=== PATIENT | male | born 1935 | race Caucasian/White ===

== ENCOUNTER 2017-05-04 21:01 | Emergency (ER) | payer MEDICARE, OTHER ==
[2017-05-04 21:12] VITALS: BP 135/76
--- NOTE | 2017-05-04 21:13 | EDM.PDOC ---
ED HPI GENERAL MEDICAL PROBLEM - General Chief Complaint: Abdominal Pain Stated Complaint: constipation/stomach pain Time Seen by Provider: 05/04/17 21:12 Source of Information: Reports: Patient, Family, RN, RN Notes Reviewed History Limitations: Reports: No Limitations - History of Present Illness INITIAL COMMENTS - FREE TEXT/NARRATIVE: Patient presents to the ED at [facility] complaining of constipation. Patient states his last BM was 05/01/2017. Patient underwent a hernia repair with mesh also on 05/01/2017. Patient states since then surgery he has not been able to have a BM. Patient states he has been using Colace twice a day without any relief. Otherwise, no other concerns. Onset Date: 05/01/17 - Related Data Allergies Allergy/AdvReac Type Severity Reaction Status Date / Time No Known Allergies Allergy Verified 12/29/14 09:10 Home Meds: Home Meds Albuterol [Ventolin HFA] 2 puff INH Q4H PRN 12/20/14 [History] Albuterol/Ipratropium [DuoNeb 3.0-0.5 MG/3 ML] 1 dose INH Q6H 11/21/16 [History] Budesonide [Pulmicort] 0.5 mg NEB BIDRT 11/21/16 [History] Formoterol [Perforomist] 20 mcg NEB BIDRT 11/21/16 [History] Furosemide [Lasix] 20 mg PO DAILY 11/21/16 [History] Lisinopril 20 mg PO DAILY 11/21/16 [History] Omeprazole Magnesium [Prilosec Otc] 20 mg PO QAM 11/21/16 [History] amLODIPine [Norvasc] 10 mg PO DAILY 11/21/16 [History] traMADol [Ultram] 50 mg PO Q4H PRN 11/21/16 [History] Doxycycline Calcium [IMW: Doxycycline] 100 mg PO BID #10 capsule 11/23/16 [Rx] Furosemide [Lasix] 40 mg PO DAILY #60 tablet 11/23/16 [Rx] Past Medical History Cardiovascular History: Reports: Heart Failure, Hypertension, SOB on Exertion Respiratory History: Reports: Asthma, COPD, Sleep Apnea Gastrointestinal History: Reports: GERD Other Gastrointestinal History: henia Other Musculoskeletal History: paget disease. cervicalgia Other Endocrine/Metabolic History: hyperlipidemia Social & Family History - Family History Family Medical History: Noncontributory Endocrine/Metabolic: Reports: Diabetes, type II - Tobacco Use Smoking Status *Q: Former Smoker Month Tobacco Last Used: 60 years ago Second Hand Smoke Exposure: Yes - Caffeine Use Caffeine Use: Reports: Coffee - Alcohol Use Days Per Week of Alcohol Use: 1 Number of Drinks Per Day: 3 Total Drinks Per Week: 3 - Recreational Drug Use Recreational Drug Use: No Drug Use in Last 12 Months: No - Living Situation & Occupation Living situation: Reports: Alone Occupation: Retired ED ROS GENERAL - Review of Systems Review Of Systems: See Below Constitutional: Denies: Fever, Chills, Weakness Respiratory: Reports: Shortness of Breath (chronic due to COPD; wears oxygen OTC ) Cardiovascular: Reports: Chest Pain, Palpitations GI/Abdominal: Reports: Abdominal Pain, Constipation. Denies: Nausea, Vomiting Skin: Reports: No Symptoms Neurological: Reports: No Symptoms ED EXAM, GI/ABD - Physical Exam Exam: See Below Exam Limited By: No Limitations General Appearance: Alert, No Apparent Distress, Obese Respiratory/Chest: No Respiratory Distress, Lungs Clear, Decreased Breath Sounds Cardiovascular: Regular Rate, Rhythm GI/Abdominal: Hypoactive Bowel Sounds, Distention. No: Guarding, Rebound Neurological: Alert, Oriented Skin Exam: Warm, Dry, Intact, Normal Color, No Rash Course - Vital Signs Last Recorded V/S: Last Vital Signs Temp 37.4 C 05/04/17 21:10 Pulse 100 05/04/17 21:10 Resp 16 05/04/17 21:10 BP 135/76 05/04/17 21:10 Pulse Ox 89 L 05/04/17 21:10 - Orders/Labs/Meds Orders: Active Orders 24 hr Category Date Time Status Magnesium Citrate [Citrate of Magnesia] Med 05/04/17 21:25 Once 296 ml PO ONETIME ONE Medication Orders Magnesium Citrate (Citrate Of Magnesia) 296 ml PO ONETIME ONE Stop: 05/04/17 21:26 Meds: Medications Generic Name Dose Route Start Last Admin Trade Name Freq PRN Reason Stop Dose Admin Magnesium Citrate 296 ml 05/04/17 21:25 Citrate Of Magnesia PO 05/04/17 21:26 ONETIME ONE Departure - Departure Time of Disposition: 21:30 Disposition: Home, Self-Care 01 Condition: Good Clinical Impression: Constipation Qualifiers: Constipation type: unspecified constipation type Qualified Code(s): K59.00 - Constipation, unspecified - Discharge Information Instructions: Constipation, Adult, [id number] Referrals: Jen Armenta MD [Primary Care Provider] - Forms: ED Department Discharge Additional Instructions: 1. Stay well hydrated and rest 2. Continue to take Colace at home 3. Keep appointment with your Primary for this week 4. Call or return for any questions/concerns - Problem List Review Problem List Initiated/Reviewed/Updated: Yes - My Orders Last 24 Hours: My Active Orders 05/04/17 21:25 Magnesium Citrate [Citrate of Magnesia] 296 ml PO ONETIME ONE - Assessment/Plan Last 24 Hours: My Active Orders 05/04/17 21:25 Magnesium Citrate [Citrate of Magnesia] 296 ml PO ONETIME ONE
[2017-05-04] MEDS ORDERED: Magnesium Citrate Solution 296 ML Bottle PO ONE (21:25)
[2017-05-04] MEDS ORDERED: Magnesium Hydroxide 400 MG/5 ML Susp 30 ML Cup PO ONE (21:27)
[2017-05-04] MEDS ORDERED: Magnesium Citrate Solution 296 ML Bottle ONE (21:35)
== END 2017-05-04 21:46 | disposition home or self-care (01) ==
LOC: SUPCPDRO 21:01 → VM.ED 21:01
DX: K59.00 Constipation, unspecified (principal); J45.909 Unspecified asthma, uncomplicated; E78.5 Hyperlipidemia, unspecified; I11.0 Hypertensive heart disease with heart failure; I50.9 Heart failure, unspecified; J44.9 Chronic obstructive pulmonary disease, unspecified; K21.9 Gastro-esophageal reflux disease without esophagitis; Z87.891 Personal history of nicotine dependence; Z79.899 Other long term (current) drug therapy
CPT/HCPCS: 99283; A9270

== ENCOUNTER 2018-04-17 08:35 | Inpatient (IN) | payer MEDICARE, OTHER ==
[2018-04-17] MEDS ORDERED: methylPREDNISolone Sodium Succinate 125 MG/2 ML SDV IV ONE (08:40)
[2018-04-17] MEDS ORDERED: Albuterol/Ipratropium 3.0-0.5 MG/3 ML Neb Soln NEB ONE (08:40)
[2018-04-17] MEDS ORDERED: Furosemide 20 MG/2 ML VIAL IV ONE (08:55)
[2018-04-17] MEDS ORDERED: cefTRIAXone 2 GM Vial IVPUSH ONE (09:13)
--- NOTE | 2018-04-17 09:19 | EDM.PDOC ---
<Anastacio Wills W - Last Filed: 04/17/18 09:26> ED HPI GENERAL MEDICAL PROBLEM - General Chief Complaint: Respiratory Problem Stated Complaint: ER Time Seen by Provider: 04/17/18 08:38 Source of Information: Reports: Patient, Provider, RN History Limitations: Reports: Respiratory Distress - History of Present Illness INITIAL COMMENTS - FREE TEXT/NARRATIVE: Pt. presents ER with complaints of dyspnea and was on prednisone recently for DJD. He states that he began getting short of breath yesterday. He finished his tapering course of prednisone yesterday. He states that he has had a cough, but this is normal for him. He denies any fever or chills. No nausea, vomiting, or diarrhea. Pt. presented to the clinic with acute dyspnea and was immediately brought to ER , as they found him to have an O2 sat in the 30s. He has been hospitalized for COPD and diastolic heart failure in the past, with the last admission being in 2017. Pt. is on home o2 at 2L/min. When he presented to ER, his O2 tank was empty. Onset Date: 04/16/18 Location: Reports: Chest Associated Symptoms: Reports: Shortness of Breath. Denies: Diaphoresis, Fever/ Chills, Headaches, Nausea/Vomiting - Related Data Allergies Allergy/AdvReac Type Severity Reaction Status Date / Time No Known Allergies Allergy Verified 04/17/18 09:08 Home Meds: Home Meds Albuterol [Ventolin HFA] 2 puff INH Q4H PRN 12/20/14 [History] Albuterol/Ipratropium [DuoNeb 3.0-0.5 MG/3 ML] 3 ml NEB Q6H 11/21/16 [History] Budesonide [Pulmicort] 0.5 mg NEB BIDRT 11/21/16 [History] Formoterol [Perforomist] 20 mcg NEB BIDRT 11/21/16 [History] Lisinopril 20 mg PO DAILY 11/21/16 [History] amLODIPine [Norvasc] 10 mg PO DAILY 11/21/16 [History] Docusate Sodium [Colace] 100 mg PO BID 05/05/17 [History] Acetaminophen 650 mg PO Q6H PRN 04/17/18 [History] Furosemide 40 mg PO BID@0800,1200 04/17/18 [History] Roflumilast [Daliresp] 250 mcg PO DAILY 04/17/18 [History] Past Medical History Cardiovascular History: Reports: Heart Failure, Hypertension, SOB on Exertion Respiratory History: Reports: Asthma, COPD, Sleep Apnea Gastrointestinal History: Reports: GERD Other Gastrointestinal History: henia Other Musculoskeletal History: paget disease. cervicalgia Other Endocrine/Metabolic History: hyperlipidemia Social & Family History - Family History Family Medical History: Noncontributory Endocrine/Metabolic: Reports: Diabetes, type II - Caffeine Use Caffeine Use: Reports: Coffee - Living Situation & Occupation Living situation: Reports: Alone Occupation: Retired ED ROS GENERAL - Review of Systems Review Of Systems: See Below Constitutional: Reports: Malaise, Fatigue HEENT: Reports: No Symptoms Respiratory: Reports: Shortness of Breath, Wheezing, Cough Cardiovascular: Reports: No Symptoms. Denies: Chest Pain Endocrine: Reports: No Symptoms GI/Abdominal: Reports: No Symptoms : Reports: No Symptoms Musculoskeletal: Reports: No Symptoms Skin: Reports: Cyanosis, Change in Color Neurological: Reports: Confusion Psychiatric: Reports: No Symptoms Hematologic/Lymphatic: Reports: No Symptoms Immunologic: Reports: No Symptoms ED EXAM, GENERAL - Physical Exam Exam: See Below Exam Limited By: No Limitations General Appearance: Alert, WD/WN, No Apparent Distress Respiratory/Chest: Lungs Clear, No Accessory Muscle Use, Chest Non-Tender, Respiratory Distress, Decreased Breath Sounds, Crackles, Wheezing Cardiovascular: Normal Peripheral Pulses, Regular Rate, Rhythm, No JVD, No Rub, Other (increased peripheral edema) Peripheral Pulses: 4+: Femoral (L), Femoral (R) GI/Abdominal: Normal Bowel Sounds, Soft, Non-Tender, No Organomegaly, No Distention, No Abnormal Bruit, No Mass (Male) Exam: Deferred Rectal (Males) Exam: Deferred Back Exam: Normal Inspection, Full Range of Motion, NT Extremities: Normal Inspection, Normal Range of Motion, Non-Tender, Normal Capillary Refill, Pedal Edema Neurological: Alert, Oriented, CN II-XII Intact, Normal Cognition, Normal Gait, Normal Reflexes, No Motor/Sensory Deficits Psychiatric: Normal Affect, Normal Mood Skin Exam: Warm, Dry, Intact, Cyanosis, Mottled Lymphatic: No Adenopathy Course - Vital Signs Last Recorded V/S: Last Vital Signs Temp 36.8 C 04/17/18 08:35 Pulse 89 04/17/18 10:45 Resp 36 H 04/17/18 10:45 BP 136/53 L 04/17/18 10:45 Pulse Ox 88 L 04/17/18 10:45 - Orders/Labs/Meds Orders: Active Orders 24 hr Category Date Time Status Admission Status [Patient Status] [ADT] Routine ADT 04/17/18 10:48 Ordered BIPAP Adult [RT BiPAP/CPAP] [RC] ASDIRECTED Care 04/17/18 08:44 Active RT Aerosol Therapy [RC] ASDIRECTED Care 04/17/18 08:40 Active Chest 1V Frontal [CR] Stat Exams 04/17/18 08:38 Taken CULTURE BLOOD [BC] Stat Lab 04/17/18 08:52 Received CULTURE BLOOD [BC] Stat Lab 04/17/18 08:56 Received Sodium Chloride 0.9% [Saline Flush] Med 04/17/18 08:38 Active 10 ml FLUSH ASDIRECTED PRN Blood Culture x2 Reflex Set [OM.PC] Stat Oth 04/17/18 08:39 Ordered Peripheral IV Insertion Adult [OM.PC] Routine Oth 04/17/18 08:39 Ordered Medication Orders Sodium Chloride (Saline Flush) 10 ml FLUSH ASDIRECTED PRN PRN Reason: Keep Vein Open Labs: Laboratory Tests 04/17/18 04/17/18 04/17/18 Range/Units 08:52 08:52 08:52 WBC 7.8 (4.0-10.0) x10^3/uL RBC 4.39 L (4.5-6.0) x10^6/uL Hgb 14.0 (14.0-18.0) g/dL Hct 48.0 (40.0-52.0) % MCV 109.3 H D (78.0-93.0) fL MCH 31.9 (26.0-32.0) pg MCHC 29.2 L (32.0-36.0) g/dL RDW Coeff of Honey 15.6 H (10.0-15.0) % Plt Count 126 L (130-400) x10^3/uL Neut % (Auto) 70.4 (50.0-80.0) % Lymph % (Auto) 9.9 L (25.0-50.0) % [place] % (Auto) 18.4 H (2.0-11.0) % Eos % (Auto) 1.0 (0.0-4.0) % Baso % (Auto) 0.3 (0.2-1.2) % PT 10.8 (9.6-11.4) SEC INR 1.0 L (2.0-3.5) POC ABG pH (7.35-7.45) POC ABG pCO2 (35-45) mmHG POC ABG pO2 (80-105) mmHG POC ABG HCO3 (22-26) mmol/L POC ABG Total CO2 (23-27) mmol/L POC ABG O2 Sat (95-98) % POC ABG Base Excess (-2-3) mmol/L POC FiO2 Sodium 138 (136-145) mmol/L Potassium 4.2 (3.5-5.1) mmol/L Chloride 96 L (98-107) mmol/L Carbon Dioxide 43 H (21-32) mmol/L Anion Gap 3.2 L (10-20) mmol/L BUN 14 (7-18) mg/dL Creatinine 0.8 (0.70-1.30) mg/dL Est Cr Clr Drug Dosing 65.31 mL/min Estimated GFR (MDRD) > 60 Glucose 118 H (74-106) mg/dL Lactic Acid (0.4-2.0) mmol/L Calcium 8.8 (8.5-10.1) mg/dL Corrected Calcium 9.44 (8.5-10.1) mg/dL Phosphorus 3.2 (2.6-4.7) mg/dL Magnesium 1.9 (1.8-2.4) mg/dL Total Bilirubin 0.6 (0.2-1.0) mg/dL AST 16 (15-37) U/L ALT 22 (16-63) U/L Alkaline Phosphatase 155 H (46-116) U/L Troponin I < 0.017 (<=0.056) ng/mL C-Reactive Protein 5.6 H (<=0.9) mg/dL NT-Pro-B Natriuret Pep 117 (<=450) pg/mL Total Protein 6.5 (6.4-8.2) g/dL Albumin 3.2 L (3.4-5.0) g/dL Globulin 3.3 Albumin/Globulin Ratio 0.97 TSH, Ultra Sensitive 0.909 (0.358-3.74) uIU/mL POC Result Comm Urine Color (YELLOW) Urine Appearance (CLEAR) Urine pH (5.0-8.0) Ur Specific [place] Urine Protein (NEGATIVE) mg/dL Urine Glucose (UA) (NEGATIVE) mg/dL Urine Ketones (NEGATIVE) mg/dL Urine Occult Blood (NEGATIVE) Urine Nitrite (NEGATIVE) Urine Bilirubin (NEGATIVE) Urine Urobilinogen (0.2) EU/dL Ur Leukocyte Esterase (NEGATIVE) Urine RBC (NOT SEEN) /HPF Urine WBC (NOT SEEN) /HPF Ur Squamous Epith Cells (NEGATIVE) /HPF Calcium Oxalate Crystal (NEGATIVE) /HPF Urine Bacteria (NEGATIVE) /HPF Hyaline Casts (NEGATIVE) /HPF Granular Casts (NEGATIVE) /HPF Urine Mucus (NEGATIVE) /LPF 04/17/18 04/17/18 04/17/18 Range/Units 08:52 09:07 10:11 WBC (4.0-10.0) x10^3/uL RBC (4.5-6.0) x10^6/uL Hgb (14.0-18.0) g/dL Hct (40.0-52.0) % MCV (78.0-93.0) fL MCH (26.0-32.0) pg MCHC (32.0-36.0) g/dL RDW Coeff of Honey (10.0-15.0) % Plt Count (130-400) x10^3/uL Neut % (Auto) (50.0-80.0) % Lymph % (Auto) (25.0-50.0) % [place] % (Auto) (2.0-11.0) % Eos % (Auto) (0.0-4.0) % Baso % (Auto) (0.2-1.2) % PT (9.6-11.4) SEC INR (2.0-3.5) POC ABG pH 7.218 L* (7.35-7.45) POC ABG pCO2 113 H* (35-45) mmHG POC ABG pO2 93 (80-105) mmHG POC ABG HCO3 46 H (22-26) mmol/L POC ABG Total CO2 49 H (23-27) mmol/L POC ABG O2 Sat 94 L (95-98) % POC ABG Base Excess 18 H (-2-3) mmol/L POC FiO2 0.80 Sodium (136-145) mmol/L Potassium (3.5-5.1) mmol/L Chloride (98-107) mmol/L Carbon Dioxide (21-32) mmol/L Anion Gap (10-20) mmol/L BUN (7-18) mg/dL Creatinine (0.70-1.30) mg/dL Est Cr Clr Drug Dosing mL/min Estimated GFR (MDRD) Glucose (74-106) mg/dL Lactic Acid 0.9 (0.4-2.0) mmol/L Calcium (8.5-10.1) mg/dL Corrected Calcium (8.5-10.1) mg/dL Phosphorus (2.6-4.7) mg/dL Magnesium (1.8-2.4) mg/dL Total Bilirubin (0.2-1.0) mg/dL AST (15-37) U/L ALT (16-63) U/L Alkaline Phosphatase (46-116) U/L Troponin I (<=0.056) ng/mL C-Reactive Protein (<=0.9) mg/dL NT-Pro-B Natriuret Pep (<=450) pg/mL Total Protein (6.4-8.2) g/dL Albumin (3.4-5.0) g/dL Globulin Albumin/Globulin Ratio TSH, Ultra Sensitive (0.358-3.74) uIU/mL POC Result Comm Called critical res Urine Color Dark yellow H (YELLOW) Urine Appearance Slightly cloudy H (CLEAR) Urine pH 5.5 (5.0-8.0) Ur Specific [place] 1.020 Urine Protein Negative (NEGATIVE) mg/dL Urine Glucose (UA) Negative (NEGATIVE) mg/dL Urine Ketones Negative (NEGATIVE) mg/dL Urine Occult Blood Negative (NEGATIVE) Urine Nitrite Negative (NEGATIVE) Urine Bilirubin Negative (NEGATIVE) Urine Urobilinogen 0.2 (0.2) EU/dL Ur Leukocyte Esterase Negative (NEGATIVE) Urine RBC 0-5 (NOT SEEN) /HPF Urine WBC Not seen (NOT SEEN) /HPF Ur Squamous Epith Cells Not seen (NEGATIVE) /HPF Calcium Oxalate Crystal Rare H (NEGATIVE) /HPF Urine Bacteria Rare (NEGATIVE) /HPF Hyaline Casts Few H (NEGATIVE) /HPF Granular Casts Rare H (NEGATIVE) /HPF Urine Mucus Few H (NEGATIVE) /LPF 04/17/18 Range/Units 10:39 WBC (4.0-10.0) x10^3/uL RBC (4.5-6.0) x10^6/uL Hgb (14.0-18.0) g/dL Hct (40.0-52.0) % MCV (78.0-93.0) fL MCH (26.0-32.0) pg MCHC (32.0-36.0) g/dL RDW Coeff of Honey (10.0-15.0) % Plt Count (130-400) x10^3/uL Neut % (Auto) (50.0-80.0) % Lymph % (Auto) (25.0-50.0) % [place] % (Auto) (2.0-11.0) % Eos % (Auto) (0.0-4.0) % Baso % (Auto) (0.2-1.2) % PT (9.6-11.4) SEC INR (2.0-3.5) POC ABG pH 7.247 L* (7.35-7.45) POC ABG pCO2 105 H* (35-45) mmHG POC ABG pO2 60 L (80-105) mmHG POC ABG HCO3 46 H (22-26) mmol/L POC ABG Total CO2 49 H (23-27) mmol/L POC ABG O2 Sat 83 L (95-98) % POC ABG Base Excess 18 H (-2-3) mmol/L POC FiO2 0.50 Sodium (136-145) mmol/L Potassium (3.5-5.1) mmol/L Chloride (98-107) mmol/L Carbon Dioxide (21-32) mmol/L Anion Gap (10-20) mmol/L BUN (7-18) mg/dL Creatinine (0.70-1.30) mg/dL Est Cr Clr Drug Dosing mL/min Estimated GFR (MDRD) Glucose (74-106) mg/dL Lactic Acid (0.4-2.0) mmol/L Calcium (8.5-10.1) mg/dL Corrected Calcium (8.5-10.1) mg/dL Phosphorus (2.6-4.7) mg/dL Magnesium (1.8-2.4) mg/dL Total Bilirubin (0.2-1.0) mg/dL AST (15-37) U/L ALT (16-63) U/L Alkaline Phosphatase (46-116) U/L Troponin I (<=0.056) ng/mL C-Reactive Protein (<=0.9) mg/dL NT-Pro-B Natriuret Pep (<=450) pg/mL Total Protein (6.4-8.2) g/dL Albumin (3.4-5.0) g/dL Globulin Albumin/Globulin Ratio TSH, Ultra Sensitive (0.358-3.74) uIU/mL POC Result Comm Called critical res Urine Color (YELLOW) Urine Appearance (CLEAR) Urine pH (5.0-8.0) Ur Specific [place] Urine Protein (NEGATIVE) mg/dL Urine Glucose (UA) (NEGATIVE) mg/dL Urine Ketones (NEGATIVE) mg/dL Urine Occult Blood (NEGATIVE) Urine Nitrite (NEGATIVE) Urine Bilirubin (NEGATIVE) Urine Urobilinogen (0.2) EU/dL Ur Leukocyte Esterase (NEGATIVE) Urine RBC (NOT SEEN) /HPF Urine WBC (NOT SEEN) /HPF Ur Squamous Epith Cells (NEGATIVE) /HPF Calcium Oxalate Crystal (NEGATIVE) /HPF Urine Bacteria (NEGATIVE) /HPF Hyaline Casts (NEGATIVE) /HPF Granular Casts (NEGATIVE) /HPF Urine Mucus (NEGATIVE) /LPF Meds: Medications Generic Name Dose Route Start Last Admin Trade Name Freq PRN Reason Stop Dose Admin Sodium Chloride 10 ml 04/17/18 08:38 Saline Flush FLUSH ASDIRECTED PRN Keep Vein Open Discontinued Medications Generic Name Dose Route Start Last Admin Trade Name Freq PRN Reason Stop Dose Admin Albuterol/Ipratropium 3 ml 04/17/18 08:40 04/17/18 08:58 Duoneb 3.0-0.5 Mg/3 Ml NEB 04/17/18 08:41 3 ml ONETIME ONE Administration Ceftriaxone Sodium 2 gm 04/17/18 09:13 Rocephin IVPUSH 04/17/18 09:14 STAT ONE Furosemide 20 mg 04/17/18 08:55 04/17/18 09:00 Lasix IV 04/17/18 08:56 20 mg ONETIME ONE Administration Methylprednisolone Sodium Succinate 125 mg 04/17/18 08:40 04/17/18 08:55 Solu-Medrol IV 04/17/18 08:41 125 mg ONETIME ONE Administration Departure - Departure Disposition: Admitted As Inpatient 64 Clinical Impression: COPD (chronic obstructive pulmonary disease) Qualifiers: COPD type: chronic bronchitis Chronic bronchitis type: unspecified Qualified Code(s): J42 - Unspecified chronic bronchitis Respiratory failure with hypoxia Qualifiers: Chronicity: acute on chronic Qualified Code(s): J96.21 - Acute and chronic respiratory failure with hypoxia - Discharge Information Referrals: Jen Armenta MD [Primary Care Provider] - Forms: ED Department Discharge - My Orders Last 24 Hours: My Active Orders 04/17/18 10:48 Admission Status [Patient Status] [ADT] Routine - Assessment/Plan Last 24 Hours: My Active Orders 04/17/18 10:48 Admission Status [Patient Status] [ADT] Routine <Lea Reyes - Last Filed: 04/17/18 11:41> ED ROS GENERAL - Review of Systems Constitutional: Reports: Malaise, Fatigue HEENT: Reports: No Symptoms Respiratory: Reports: Shortness of Breath, Wheezing. Denies: Pleuritic Chest Pain Cardiovascular: Reports: Dyspnea on Exertion, Edema. Denies: Chest Pain, Blood Pressure Problem, Orthopnea Endocrine: Reports: Fatigue GI/Abdominal: Reports: No Symptoms : Reports: No Symptoms Musculoskeletal: Reports: Joint Pain (chronic condition. recently on Steroids for pain/discomfort ) Skin: Reports: Cyanosis, Change in Color Neurological: Reports: Confusion, Other (Bipap on for 1 hour assessment: A&Ox3 ) Psychiatric: Reports: No Symptoms Hematologic/Lymphatic: Reports: No Symptoms Immunologic: Reports: No Symptoms ED EXAM, GENERAL - Physical Exam Exam Limited By: No Limitations General Appearance: Alert, WD/WN, No Apparent Distress Head: Atraumatic, Normocephalic Neck: Normal Inspection, Supple Respiratory/Chest: Chest Non-Tender, Respiratory Distress, Decreased Breath Sounds, Crackles, Rhonchi, Wheezing, Accessory Muscle Use Cardiovascular: Normal Peripheral Pulses, Gallop/S3 Peripheral Pulses: 1+: Posterior Tibial (L), Posterior Tibial (R), 2+: Radial (L ), Radial (R) GI/Abdominal: Normal Bowel Sounds, Soft, Non-Tender, No Distention, No Abnormal Bruit Back Exam: Normal Inspection, Full Range of Motion Extremities: Normal Inspection, Normal Range of Motion, Non-Tender, Pedal Edema , Pallor Neurological: Alert, Oriented, CN II-XII Intact, Normal Cognition, Normal Gait, Slow to Respond Psychiatric: Normal Affect, Normal Mood Skin Exam: Warm, Dry, Intact, Cyanosis, Mottled Departure - Departure Time of Disposition: 11:45 Condition: Fair - My Orders Last 24 Hours: My Active Orders 04/17/18 10:48 Admission Status [Patient Status] [ADT] Routine - Assessment/Plan Last 24 Hours: My Active Orders 04/17/18 10:48 Admission Status [Patient Status] [ADT] Routine Assessment:: 1. Respiratory failure 2. Shortness of Breath Plan: 1. Pt was in the clinic for shortness of breath and low oxygenation. Patient was confused and unable to complete sentences due to shortness of breath when admitted into the emergency department (According to Anastacio MARQUEZ). Patient does not want to be intubated or chest compression but will attempt other means for reversing shortness of breath. Patient was placed on BiPAP labs are drawn EKG completed x-ray completed (Completed by Anastacio MARQUEZ). 2. Patient was given Solu-Medrol, Lasix, Rocephin and Emergency Department 3. One hour ABGs were drawn after patient was placed on BiPAP. Clinical assessment patient is more alert and oriented able to answer shines appropriately. He is still tired responds appropriately. Assessment findings remain the same patient still has rales and crackles diminished sounds at the bases and edema in his lower extremity's. Patient however is not using accessory muscles any longer to help with breathing is more calm and relaxed. Patient states that he feels better he denies feeling short of breath any longer feels the BiPAP is working. 4. Plan for the patient will be to admit him for further monitoring and management regarding his shortness of breath/COPD exacerbation. Contact was made with Dr. Armenta who is aware from the office. 5. Dr. Castano was contacted at 10:23 for an acute inpatient admission. She is currently in clinic and will call back. 6. 10:40 Dr. Castano to accept admit for acute care. Would like pt to remain in ER if possible for a while longer to ensure he remains stable. 7. ABG redraw post 1 hour BIPAP still showing acute respiratory acidosis. Pt will remain on BIPAP and will be transferred to acute inpatient care.
[2018-04-17 09:52] LABS: CHLORIDE,CL 96 mmol/L (98-107); SODIUM,NA 138 mmol/L (136-145)
[2018-04-17] MEDS ORDERED: Azithromycin 500 MG in Sodium Chloride 0.9% 250 ML IV SCH (13:15)
[2018-04-17] MEDS: Sodium Chloride 0.9% 10 ML Syringe FLUSH PRN ×2 (13:25→16:05)
[2018-04-17] MEDS: Enoxaparin 40 MG/0.4 ML Syringe SUBCUT SCH (13:25)
[2018-04-17] MEDS: Albuterol/Ipratropium 3.0-0.5 MG/3 ML Neb Soln NEB PRN ×2 (13:53→17:52)
[2018-04-17] MEDS: Albuterol/Ipratropium 3.0-0.5 MG/3 ML Neb Soln NEB SCH ×3 (14:40→23:06)
[2018-04-17] MEDS: methylPREDNISolone Sodium Succinate 40 MG/1 ML SDV IVPUSH SCH ×2 (16:05→23:07)
[2018-04-17] MEDS ORDERED: Non-Formulary Medication 1 Each (Formoterol [Perforomist] 20 MCG) NEB SCH (20:00)
[2018-04-17] MEDS: Acetaminophen 325 MG Tab PO PRN ×2 (23:12→23:33)
--- NOTE | 2018-04-17 23:16 | HP ---
CHIEF COMPLAINT: Shortness of breath. HISTORY OF PRESENT ILLNESS: This is a known COPD patient with asthma who has been admitted previously for exacerbation, who presented to the clinic today with one day of worsening cough and shortness of breath. He was barely awake in the clinic. Saturations were reported to be down as low as 30%. He was taken over to the emergency room. His saturations there were 68%. He was immediately placed on BiPAP. He received nebs and Solu-Medrol. His mentation did improve. His CO2 actually returned quite elevated at 113. He denied any chest pain. He denied any fever or chills. He had just been on prednisone earlier this month for lumbar radiculopathy. He tells me that he has been compliant with his nebulizers. He takes Perforomist and Pulmicort. He has also been prescribed Daliresp. When he was admitted for COPD exacerbation back in 10/2016, I actually took care of him at that time and back in November he had a CT scan which was negative for pulmonary embolism, but it does not look like he was admitted at that time. Otherwise, he was reported to be wheezing by ER staff that has improved. ALLERGIES: None. MEDICATIONS: His medication list includes Daliresp 250 daily, Lasix 40 mg daily, Perforomist 20 mcg nebulized twice a day, Pulmicort 0.5 mg nebulized twice a day, DuoNebs every six hours as scheduled, lisinopril 20 mg daily, Norvasc 10 mg daily, Ventolin inhaler as needed, Tylenol 650 every six hours as needed for pain, Colace 100 mg twice daily, oxygen he is supposed to be at 2 L with rest and 6 L with activity per his chart, it sounds like he has used about 2 L at home. PAST MEDICAL HISTORY: COPD with asthma. He had pulmonary function testing in 2017 which showed him to have an FEV1 of 0.82 or 36% of predicted, severe obstructive disease without bronchodilator response reported at that time. Otherwise, he has essential hypertension, mixed hyperlipidemia, GERD without esophagitis, Paget's disease of the bone, chronic left SI joint pain, degenerative disk disease of the lumbar spine, scoliosis of the lumbar spine, obesity, epigastric hernia, and chronic diastolic heart failure which appears to be stable without exacerbation. He did get some Lasix in the ER, but his proBNP returned normal at actually 117. Otherwise, his EF has been 75% on echo in 11/2016. SOCIAL HISTORY: The patient today was actually brought in by his brother. He is single, lives at home independently. Never . No children. FAMILY HISTORY: Both parents are . Father had diabetes and a heart attack. Mother had cancer. Brother has some kind of muscle condition reported. PAST SURGICAL HISTORY: Includes ventral hernia repair and another repair of incisional hernia, repair of hernia with mesh in 04/2017 appears to be his last surgery. REVIEW OF SYSTEMS: General: The patient denies any recent weight gain. Again, no fever and no chills. HEENT: No sore throat. Cardiac: No chest discomfort. No palpitations. Actually, it should be reported it looks like his weight is up about 12 pounds on a clinic weight from just a couple weeks ago. Musculoskeletal: He did admit to some leg swelling. Respiratory: He has had a cough. He has had shortness of breath. Back: He denied any current back pain. Otherwise, all systems reviewed and found to be negative unless otherwise stated. PHYSICAL EXAMINATION: Vital Signs: His weight actually at the hospital was charted to be 118 on the standing scale and in the clinic weight was actually 122 kg, so possibly in the patient's acute distress that weight was not as accurate. His temperature is 98.1, pulse 88, blood pressure 101/75, respiratory rate 20, O2 at 90% on 60% FiO2 with BiPAP settings 15/5. General: He is resting comfortably in bed. Later, we did take off his BiPAP. He was sitting on the edge of the bed, visiting with us. He was able to talk in short sentences but did appear winded. He was doing some mild tripoding. Heart: Regular rate and rhythm. S1, S2 without murmur appreciated, but tones are distant. Respiratory: Lungs sounds show very decreased air entry in the bases, but good air movement in the upper lungs without crackles or wheezing. Abdomen: Nondistended and nontender. Extremities: Warm and dry. He does have 1+ edema up his lower shins. Mental Status: He is alert. He is orientated x3. LAB WORK: Reviewed, does have a normal white count 7.8, hemoglobin 14, platelets 126. INR was 1. D-dimer was not done. Repeat ABG showed 7.247 and 105 bicarb, and this was on 60% FiO2. After about an hour, PO2 was 60; actually first PO2 was slightly improved on that at 93. Sodium 138, potassium 4.2, chloride 96, bicarb 43, BUN 14, creatinine 0.8, glucose 118, lactic 0.9, magnesium 1.9, phosphorus 3.2, AST 16, ALT 22, alkaline phosphatase 155. Troponin negative. CRP 5.6. ProBNP 117, TSH 0.909. UA negative for wbc's or rbc's. DIAGNOSTIC STUDIES: EKG was reviewed as well, was a sinus rhythm. Chest x-ray was also reviewed. There was some atelectasis noted but no significant infiltrate. The patient did receive some IV Rocephin in the ER. He had also received some Lasix. One of our comment on the chest x-rays is extremely poor inhalation noted. IMPRESSION AND PLAN: 1. Acute on chronic hypoxic and hypercapnic respiratory failure, likely due to chronic obstructive pulmonary exacerbation. The patient has already had some improvements with treatments targeted at chronic obstructive pulmonary exacerbation. We will continue him on IV steroids 40 mg three times a day. We will continue q.4 hours scheduled DuoNebs and DuoNebs p.r.n. We will continue the BiPAP; however, later the patient was refusing. He was able to be weaned off. He was saturating upper 80% on about 12 L. he was allowed to eat something. The patient has elected to be a no code, no intubation; therefore, that is why he was not transferred. He will be managed here conservatively. Seeing as how the patient is refusing intubation, I will not continue repeating ABGs by will do a venous gas to evaluate the CO2. We will continue to encourage BiPAP. 2. Chronic obstructive pulmonary disease exacerbation with known severe underlying chronic obstructive pulmonary exacerbation. I am going to give him some oral Zithromax and continue Rocephin due to the severe exacerbation I will also send a sputum culture due to his purulent sputum. 3. Essential hypertension. Blood pressures are running lower. I am going to hold his home medications. 4. History of gastroesophageal reflux disease. I do not see any medications for that currently, we will address as needed. 5. Degenerative disk disease in the back. He is not having any pain right now. We will control pain with Tylenol as needed. 6. Chronic diastolic heart failure, stable without exacerbation. We will continue to monitor for any signs of heart failure. I will hold off on any further fluids or IV Lasix. 7. Obesity. PLAN: At this point patient will continue acute cares with BiPAP, IV steroids, nebulizers, and ABX. We will repeat lab work in the a.m. I anticipate he will at least need a 2-night stay. Greater than 30 minutes spent on this admission process, evaluating and treating the patient with respiratory failure. MKA: 04/17/2018 17:03:41 MODL: 04/17/2018 22:26:06 /[id number] MTDD
[2018-04-18] MEDS ORDERED: QUEtiapine 25 MG Tab PO ONE (02:28)
[2018-04-18] MEDS: Albuterol/Ipratropium 3.0-0.5 MG/3 ML Neb Soln NEB SCH ×6 (03:07→23:43)
[2018-04-18] MEDS: methylPREDNISolone Sodium Succinate 40 MG/1 ML SDV IVPUSH SCH ×2 (07:35→18:46)
[2018-04-18] MEDS: Sodium Chloride 0.9% 10 ML Syringe FLUSH PRN ×3 (07:35→18:46)
[2018-04-18] MEDS ORDERED: ROFLUMILAST 250 MCG PO SCH (08:00)
[2018-04-18 08:08] LABS: CHLORIDE,CL 94 mmol/L (98-107); SODIUM,NA 136 mmol/L (136-145)
[2018-04-18] MEDS ORDERED: QUEtiapine 25 MG Tab PO PRN (08:44)
--- NOTE | 2018-04-18 10:34 | PN ---
Progress Note for BRITNI VALENTINO Date: 04/18/2018 Room #: [id number] SUBJECTIVE: This is hospital day #2 for an 83-year-old admitted with acute hypoxic and hypercapnic respiratory failure secondary to a COPD exacerbation. He began coughing up some purulent sputum. He has been afebrile. He denies any chest pain. He feels his cough and shortness of breath are improving. He was on BiPAP all night. He is up and alert this morning, saturating in the 90s on 11 L. He normally does use 3 L at home and 6 L with activity. His last admission was well over a year ago. Otherwise, the patient did refuse his BiPAP for the latter part of yesterday afternoon. He had significant CO2 retention. He became unresponsive and was doing some twitching, so he was placed back on BiPAP. During the night, he was having some difficulty sleeping due to the Solu- Medrol, so did receive some Seroquel. OBJECTIVE: Vital Signs: On exam, his temperature is 98.3, pulse is 75, blood pressure 106/53, respiratory rate 26, and O2 of 96 on 11 L. General: He is in no acute distress. Heart: Regular rate and rhythm. Lungs: Sounds show good air entry throughout. No crackles or wheezes. Abdomen: Nondistended, nontender. Extremities: Warm and dry. No edema. Mental Status: He is alert. He is orientated x3. LAB WORK: This morning did show him to have a normal white count 6.2, hemoglobin 13.1, and platelets 126. Sodium 136, potassium 5, chloride 94, bicarb 41, BUN 19, creatinine 0.9, glucose 143, and calcium 8.5. Venous blood gas was done this morning. His pH was 7.46, pCO2 had decreased down to 63 from 105 on his ABG yesterday. Does suggest some metabolic alkalosis with superimposed respiratory acidosis, but even yesterday with his ABGs did show some chronic compensated respiratory acidosis as his pH was 7.2. ASSESSMENT AND PLAN: 1. Acute on chronic hypoxic and hypercapnic respiratory failure secondary to a severe chronic obstructive pulmonary disease exacerbation. 2. Severe underlying chronic obstructive pulmonary disease with exacerbation. 3. Essential hypertension. Blood pressures have been running low. Home medications are on hold. 4. History of gastroesophageal reflux disease, stable without problems. 5. Degenerative disk disease in the back. He is not having any pain. 6. Chronic diastolic heart failure stable without exacerbation. 7. Obesity. PLAN: At this point, the patient is off BiPAP. He is eating and drinking. We will leave the BiPAP in his room, in case he has a further need for it. He is actually thinking he might be able to go home later today or tomorrow. I anticipate he needs at least another night stay to ensure he stays off BiPAP. We will change his IV steroids to twice daily to avoid him getting it during the night. We will continue scheduled and p.r.n. nebs. I will stop the IV Zithromax and continue the IV Rocephin. Sputum cultures have been ordered. He has no history that I am aware of Pseudomonas and he is already improving, so we will hold off on any quinolones. Otherwise, the patient will continue acute cares. He still requiring 11 L of oxygen. We will wean that down today as able. MKA: 04/18/2018 10:08:40 MODL: 04/18/2018 10:28:37 /[id number]
[2018-04-18] MEDS: cefTRIAXone 1 GM Vial IVPUSH SCH (10:37)
[2018-04-18] MEDS: Enoxaparin 40 MG/0.4 ML Syringe SUBCUT SCH (13:38)
[2018-04-18] MEDS ORDERED: Non-Formulary Medication 1 Each INH SCH (16:00)
[2018-04-18] MEDS: PERFOROMIST 20 MCG INH SCH ×2 (16:53→19:54)
[2018-04-18] MEDS: Acetaminophen 325 MG Tab PO PRN (23:43)
[2018-04-19] MEDS: Albuterol/Ipratropium 3.0-0.5 MG/3 ML Neb Soln NEB SCH ×5 (03:09→22:16)
[2018-04-19] MEDS: methylPREDNISolone Sodium Succinate 40 MG/1 ML SDV IVPUSH SCH ×2 (06:14→09:14)
[2018-04-19 08:21] LABS: CHLORIDE,CL 91 mmol/L (98-107); SODIUM,NA 131 mmol/L (136-145)
[2018-04-19] MEDS: PERFOROMIST 20 MCG INH SCH ×2 (08:31→19:28)
--- NOTE | 2018-04-19 09:08 | PN ---
Progress Note for BRITNI VALENTINO Date: 04/19/2018 Room #: [id number] SUBJECTIVE: This is hospital day #3 on an 83-year-old, admitted with acute hypoxic and hypercapnic respiratory failure secondary to a COPD exacerbation. Yesterday, he was weaned from BiPAP. He did just use it for a nap. He slept without it last night. Sats did drop into the 70s while sleeping. His heart rates did drop into the 50s. He has been off his home medications for blood pressure including Lasix, Norvasc, and lisinopril. Blood pressures have been in the low-teens. Otherwise, he feels his cough and breathing have improved. He actually would like to go home, but is still requiring 8 L of oxygen. He has been afebrile. His IV inadvertently came out this morning. OBJECTIVE: Vital Signs: His temperature is 98, pulse 82, blood pressure 109/59, respiratory rate 18, and O2 96 on 8 L. General: He is in no acute distress. Heart: Regular rate and rhythm. Lungs: Sounds are clear in the uppers with no wheezing. The lowers have just faint crackles with decreased breath sounds bilaterally. Extremities: Warm and dry. He still has trace edema. Mental Status: He is alert and orientated x3. Genitourinary: Gan came out yesterday. He has been voiding okay. LABORATORY DATA: Lab work reviewed does show his white count 9.4, hemoglobin 14, and platelets 139. Sodium 131, potassium 4.9, chloride 91, bicarbonate 31, BUN 22, glucose 129, and calcium 8.4. ASSESSMENT AND PLAN: 1. [id number] hypoxic and hypercapnic respiratory failure due to chronic obstructive pulmonary disease exacerbation, improving. Informed the patient that he will need to be on 6 L of oxygen or less to return home. He is agreeable to stay. We will change IV Rocephin over to oral Ceftin and IV Solu-Medrol over to prednisone as his IV came out. Given his critical severe illness, it would be good to see how he does on orals for 1 day prior to transferring home. 2. Severe underlying chronic obstructive pulmonary disease. He is on his home Perforomist. Family was unable to locate his [facility] at home. He still has scheduled and p.r.n. nebs. He is on every 4 hours scheduled. We will back that off to 4 times a day. He still has p.r.n. available if needed. 3. Essential hypertension. Blood pressure still under good control. We will continue holding his home medications. 4. History of gastroesophageal reflux disease. Stable without problems. 5. Degenerative disk disease in the back. 6. Chronic diastolic heart failure. Stable without exacerbation. I will check a proBNP today as he has been off Lasix several days. 7. Obesity. PLAN: At this point, the patient will continue acute cares. We will continue to wean oxygen. We will switch his IV steroids and antibiotics over to oral. We will get a chest x-ray today as well. Blood cultures have been negative. I have not seen any results on the sputum culture, but clinically he is improving with the Ceftin. DVT prophylaxis, he is on Lovenox. MKA: 04/19/2018 08:42:54 MODL: 04/19/2018 08:57:37 /[id number]
[2018-04-19] MEDS: cefTRIAXone 1 GM Vial IVPUSH SCH (09:14)
[2018-04-19] MEDS: predniSONE 20 MG Tab PO SCH (09:40)
[2018-04-19] MEDS: Cefuroxime 250 MG Tab PO SCH ×2 (09:40→19:28)
[2018-04-19] MEDS: Enoxaparin 40 MG/0.4 ML Syringe SUBCUT SCH (11:59)
[2018-04-19] MEDS: Furosemide 40 MG Tab PO SCH (13:20)
[2018-04-19] MEDS: Acetaminophen 325 MG Tab PO PRN (19:27)
[2018-04-20] MEDS: Albuterol/Ipratropium 3.0-0.5 MG/3 ML Neb Soln NEB SCH (03:35)
[2018-04-20 05:20] VITALS: BP 122/66
[2018-04-20] MEDS: Furosemide 40 MG Tab PO SCH (07:48)
[2018-04-20] MEDS: predniSONE 20 MG Tab PO SCH (07:48)
[2018-04-20] MEDS: Cefuroxime 250 MG Tab PO SCH (07:48)
[2018-04-20] MEDS: PERFOROMIST 20 MCG INH SCH (07:51)
[2018-04-20 07:58] LABS: CHLORIDE,CL 96 mmol/L (98-107); SODIUM,NA 136 mmol/L (136-145)
[2018-04-20] MEDS ORDERED: guaiFENesin 600 MG Tab.ER PO SCH (08:30)
--- NOTE | 2018-04-20 09:24 | DISCH ---
PRIMARY DISCHARGE DIAGNOSES: 1. Acute on chronic hypoxic and hypercapnic respiratory failure secondary to his chronic obstructive pulmonary disease exacerbation. 2. Severe underlying chronic obstructive pulmonary disease with exacerbation. 3. Essential hypertension, controlled. 4. Chronic diastolic heart failure, stable with fluid retention due to holding Lasix, however, patient on discharge is improving. He has no pedal edema. His respiratory status has improved. He is urinating adequately. 5. History of gastroesophageal reflux disease. 6. Degenerative disc disease in the back, recently on prednisone for that. 7. Obesity. REASON FOR ADMISSION: On the date of admission, this 83-year-old male came into the clinic with a 1-day history of cough and shortness of breath. He became unresponsive with low oxygen saturations, barely could pick them up, maybe in the 30s, was taken over to the ER. Saturations were in the 60s. He was placed on BiPAP. His CO2 was 111. He improved with BiPAP. His CO2 was coming down, but then he started to refuse BiPAP. Later that day, he was doing some twitching, was unarousable. He was placed back on BiPAP. By the next morning after wearing the BiPAP, he was sitting up in his room. He was answering questions. He had refused to be admitted or transferred for further care. Overall, he did well. He was weaned off the BiPAP. He used it on his 2nd hospital day just for naps in the afternoon, but had been off it for greater than 24 hours prior to discharge. The patient never had a fever. He had a normal white count. He had x-ray showing some atelectasis, but no jaelyn infiltrates, little bit of fluid on his x-ray I repeated yesterday when Lasix was restarted and he had good urine output of 3.5 L. Blood pressure had been running low during his stay, so actually his amlodipine and his lisinopril and Lasix was on hold. Otherwise on discharge, the patient was weaned down to 5 L. He was saturating 91-92%. He does not have any underlying sleep apnea, but is normally on oxygen at home 2-3 L with rest and up to 6 L with activity. PHYSICAL EXAMINATION: Vital Signs: Discharging vitals include a weight of 124 kg actual previous weight was documented to be 118 on 04/17, however, that was reported as a stated weight, so it is unclear if that was accurate, temperature 98, pulse 82, blood pressure 122/66, respiratory rate 19, and O2 of 91% on 5 L. General: He is in no acute distress. Heart: Regular rate and rhythm. Lungs: Lung sounds do show some decreased air entry throughout. He just had some faint crackles in both bases. No wheezing. Abdomen: Nondistended, nontender. Extremities: Warm and dry, just trace edema. Mental Status: He is alert and orientated x3. DISCHARGING LAB WORK: His sodium was 136. His creatinine was 0.8, other electrolytes were within range. Hemoglobin was 14 yesterday, white count was normal. He did remain on Lovenox for DVT prophylaxis throughout his stay. He did not have a D-dimer. Clinically, this was felt to be a COPD exacerbation and he had a negative CT PE protocol back in November. He clinically improved each day. He went from requiring 60% oxygen on BiPAP to 5 L of oxygen, which is near his baseline. DISCHARGE PLANS AND INSTRUCTIONS: He will follow up with Dr. Armenta in the clinic on April 28 at 9:40. He will be on Ceftin for 1 more day. He was treated with some IV Rocephin initially and Zithromax. His sputum cultures were requested during his stay, but were not able to be obtained. Blood cultures were no growth. He will resume his Pulmicort. He had been getting Perforomist. He will resume DuoNeb at home. He had been receiving nebs here. He will be on prednisone 20 mg daily for another 5 days. He will take Mucinex. He will hold his amlodipine, but continue lisinopril and Lasix 40 mg twice daily. He should not need any lab work at his followup visit as he was placed on the same dose of the Lasix he previously took. Otherwise, the patient did feel like he could benefit from home health. [id number] encounter occurred on 04/20/2018. The reasons for home health are nursing for teaching and assessment of new medications and recent admission for severe respiratory failure. He will have home monitoring for his oxygen. He will complete his antibiotics. Due to increased dyspnea with activity, he requires assist of another person to leave his home. He is aware that he will be homebound well on home health. Otherwise, I will periodically review this plan of care or it can be sent to Dr. Armenta. Greater than 30 minutes spent. MKA: 04/20/2018 08:31:16 MODL: 04/20/2018 08:57:34 /[id number] MTDD
== END 2018-04-20 08:55 | disposition home health service (06) | DRG 190 ==
LOC: VM.ED 08:35 → VM.MS 10:48
PROVIDERS: ADMIT Internal Medicine; ATTEND Family Medicine
PROC: 5A09357 Assistance with Respiratory Ventilation, Less than 24 Consecutive Hours, Continuous Positive Airway Pressure (ICD-10-PCS; principal; 2018-04-17)
DX: J44.1 Chronic obstructive pulmonary disease with (acute) exacerbation (principal); J96.22 Acute and chronic respiratory failure with hypercapnia; E87.2 Acidosis; J96.21 Acute and chronic respiratory failure with hypoxia; I50.32 Chronic diastolic (congestive) heart failure; G47.30 Sleep apnea, unspecified; I11.0 Hypertensive heart disease with heart failure; E78.5 Hyperlipidemia, unspecified; K21.9 Gastro-esophageal reflux disease without esophagitis; M51.36 Other intervertebral disc degeneration, lumbar region; E66.9 Obesity, unspecified; Z99.81 Dependence on supplemental oxygen; Z79.899 Other long term (current) drug therapy; Z79.82 Long term (current) use of aspirin; Z68.35 Body mass index [BMI] 35.0-35.9, adult
CPT/HCPCS: 36415; 36600; 71045; 80053; 81001; 82803 ×2; 83605; 83735; 83880; 84100; 84443; 84484; 85025; 85610; 86140; 87040 ×2; 93005; 94640; 94660; 96374; 96375; 99285; J1940; J2930; 51702; 51798; 71046; 80048; 94760; A9270-GY; J0456; J0696; J1650; J2920; J7050

== ENCOUNTER 2018-04-22 09:03 | Emergency (ER) | payer MEDICARE, OTHER ==
[2018-04-22] MEDS ORDERED: Sodium Chloride 0.9% 10 ML Syringe FLUSH PRN (09:06)
[2018-04-22] MEDS ORDERED: Ondansetron 4 MG/2 ML SDV IVPUSH ONE (09:12)
[2018-04-22] MEDS ORDERED: methylPREDNISolone Sodium Succinate 125 MG/2 ML SDV IVPUSH ONE (09:13)
[2018-04-22] MEDS ORDERED: Levalbuterol HCl 1.25 MG/0.5 ML Neb NEB ONE ×2 (09:13→11:27)
[2018-04-22 09:29] LABS: BICARBONATE,ARTERIAL 49 mmol/L (22-26)
[2018-04-22 09:30] LABS: BASE EXCESS ARTERIAL 23 mmol/L (-2-3); O2 FLOW RATE 6 L/min
[2018-04-22 09:32] LABS: PCO2 ARTERIAL 100 mmHG (35-45)
[2018-04-22 09:33] LABS: PO2 ARTERIAL 50 mmHG (80-105)
--- NOTE | 2018-04-22 09:44 | EDM.PDOC ---
ED HPI GENERAL MEDICAL PROBLEM - General Chief Complaint: Respiratory Problem Stated Complaint: Need oxygen Time Seen by Provider: 04/22/18 09:04 Source of Information: Reports: Patient, Family, RN, RN Notes Reviewed History Limitations: Reports: No Limitations - History of Present Illness INITIAL COMMENTS - FREE TEXT/NARRATIVE: Patient is brought to the emergency room at [facility] for worsening respiratory status. According to the brother and the patient has been struggling to breathe and has been struggling to maintain his oxygen. The patient has a long-standing history of severe COPD and home O2 noncompliance. The patient was recently admitted to this facility last week for acute COPD exacerbation. The patient was able to be discharged home a couple of days ago. According to the patient, he states he never felt better when he was discharged from this facility 2 days ago. The patient states that over the past couple days he has been struggling to breathe. The patient does have a chronic cough. The patient denies any chest pain. The patient states that he feels very confused and lethargic. The patient has not had any nausea vomiting or diarrhea. The patient states that he is taking his home medications as directed. The patient has been getting better with his compliance with home O2. 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: Oxygen - Related Data Allergies Allergy/AdvReac Type Severity Reaction Status Date / Time No Known Allergies Allergy Verified 04/22/18 09:15 Home Meds: Home Meds Albuterol [Ventolin HFA] 2 puff INH Q4H PRN 12/20/14 [History] Albuterol/Ipratropium [DuoNeb 3.0-0.5 MG/3 ML] 3 ml NEB Q6H 11/21/16 [History] Budesonide [Pulmicort] 0.5 mg NEB BIDRT 11/21/16 [History] Formoterol [Perforomist] 20 mcg NEB BIDRT 11/21/16 [History] Lisinopril 20 mg PO DAILY 11/21/16 [History] Docusate Sodium [Colace] 100 mg PO BID 05/05/17 [History] Acetaminophen 650 mg PO Q6H PRN 04/17/18 [History] Furosemide 40 mg PO BID@0800,1200 04/17/18 [History] Roflumilast [Daliresp] 250 mcg PO DAILY 04/17/18 [History] Cefuroxime Axetil [Ceftin] 250 mg PO BID #3 tablet 04/20/18 [Rx] guaiFENesin [Mucinex] 600 mg PO BID #14 tab.er 04/20/18 [Rx] predniSONE 20 mg PO WITHBREAKFAST #5 tablet 04/20/18 [Rx] Past Medical History Cardiovascular History: Reports: Heart Failure, Hypertension, SOB on Exertion Respiratory History: Reports: Asthma, COPD, Sleep Apnea Gastrointestinal History: Reports: GERD Other Gastrointestinal History: henia Musculoskeletal History: Reports: Osteoarthritis, Other (See Below) Other Musculoskeletal History: paget disease. cervicalgia Other Endocrine/Metabolic History: hyperlipidemia Dermatologic History: Reports: Other (See Below) Other Dermatologic History: lipoma of back - Infectious Disease History Infectious Disease History: Reports: Chicken Pox - Past Surgical History GI Surgical History: Reports: Hernia Repair/Other, Other (See Below) Other GI Surgeries/Procedures: ventral hernia. lap hernia repair Social & Family History - Family History Family Medical History: Noncontributory Endocrine/Metabolic: Reports: Diabetes, type II - Caffeine Use Caffeine Use: Reports: Coffee, Soda - Living Situation & Occupation Living situation: Reports: Alone Occupation: Retired ED ROS GENERAL - Review of Systems Review Of Systems: See Below Constitutional: Reports: Weakness, Fatigue. Denies: Fever, Chills HEENT: Reports: No Symptoms Respiratory: Reports: Shortness of Breath, Wheezing. Denies: Cough, Sputum Cardiovascular: Reports: Dyspnea on Exertion, Lightheadedness. Denies: Chest Pain, Palpitations GI/Abdominal: Denies: Abdominal Pain, Nausea, Vomiting Skin: Reports: Cyanosis Neurological: Reports: Confusion ED EXAM, GENERAL - Physical Exam Exam: See Below Exam Limited By: No Limitations General Appearance: Alert, Severe Distress, Obese Respiratory/Chest: Respiratory Distress, Decreased Breath Sounds, Wheezing, Accessory Muscle Use Cardiovascular: Regular Rate, Rhythm Peripheral Pulses: 2+: Radial (L), Radial (R) GI/Abdominal: Soft, Non-Tender, Abnormal Bowel Sounds (Hypoactive) Extremities: Pedal Edema Neurological: Alert, Disoriented, Slow to Respond Skin Exam: Cyanosis (around lips and cheeks) EKG INTERPRETATION EKG Date: 04/22/18 Time: 09:40 Rhythm: NSR Rate (Beats/Min): 68 [place]: Normal P-Wave: Present QRS: RBBB ST-T: Normal QT: Normal NV/PQ Interval: 0.19 Comparison: No Change EKG Interpretation Comments: 1. Sinus Rhythm 2. RBBB 3. Left Anterior Fascicular block 4. Possible anterior VA, of indeterminate age Course - Vital Signs Last Recorded V/S: Last Vital Signs Temp 35.7 C 04/22/18 09:27 Pulse 67 04/22/18 09:45 Resp 26 H 04/22/18 09:45 BP 101/52 L 04/22/18 09:45 Pulse Ox 96 04/22/18 09:45 - Orders/Labs/Meds Orders: Active Orders 24 hr Category Date Time Status BIPAP Adult [RT BiPAP/CPAP] [] ASDIRECTED Care 04/22/18 09:37 Active EKG 12 Lead [EKG Documentation Completion] [] STAT Care 04/22/18 09:06 Active RT Aerosol Therapy [] ASDIRECTED Care 04/22/18 09:13 Active Chest 1V Frontal [CR] Stat Exams 04/22/18 09:04 Taken Sodium Chloride 0.9% [Saline Flush] Med 04/22/18 09:06 Active 10 ml FLUSH ASDIRECTED PRN Peripheral IV Insertion Adult [OM.PC] Routine Oth 04/22/18 09:06 Ordered Medication Orders Sodium Chloride (Saline Flush) 10 ml FLUSH ASDIRECTED PRN PRN Reason: Keep Vein Open Labs: Laboratory Tests 04/22/18 04/22/18 04/22/18 Range/Units 09:15 09:15 09:15 WBC 7.1 (4.0-10.0) x10^3/uL RBC 4.94 (4.5-6.0) x10^6/uL Hgb 15.7 D (14.0-18.0) g/dL Hct 53.4 H (40.0-52.0) % MCV 108.1 H D (78.0-93.0) fL MCH 31.8 (26.0-32.0) pg MCHC 29.4 L (32.0-36.0) g/dL RDW Coeff of Honey 14.9 (10.0-15.0) % Plt Count 122 L (130-400) x10^3/uL Neut % (Auto) 60.5 (50.0-80.0) % Lymph % (Auto) 18.6 L (25.0-50.0) % [place] % (Auto) 20.4 H (2.0-11.0) % Eos % (Auto) 0.4 (0.0-4.0) % Baso % (Auto) 0.1 L (0.2-1.2) % ABG pH (7.35-7.45) ABG pCO2 (35-45) mmHG ABG pO2 (80-105) mmHG ABG HCO3 (22-26) mmol/L ABG Total CO2 (23-27) mmol/L ABG O2 Content (95-98) % ABG Base Excess (-2-3) mmol/L Oxygen Flow Rate L/min FiO2 Sodium 137 (136-145) mmol/L Potassium 4.7 (3.5-5.1) mmol/L Chloride 95 L (98-107) mmol/L Carbon Dioxide 52 H (21-32) mmol/L Anion Gap -5.3 L (10-20) mmol/L BUN 15 (7-18) mg/dL Creatinine 0.7 (0.70-1.30) mg/dL Est Cr Clr Drug Dosing TNP Estimated GFR (MDRD) > 60 Glucose 96 (74-106) mg/dL Lactic Acid 1.2 (0.4-2.0) mmol/L Calcium 9.3 (8.5-10.1) mg/dL Corrected Calcium 9.70 (8.5-10.1) mg/dL Total Bilirubin 1.0 (0.2-1.0) mg/dL AST 22 (15-37) U/L ALT 49 (16-63) U/L Alkaline Phosphatase 150 H (46-116) U/L C-Reactive Protein 0.2 (<=0.9) mg/dL Total Protein 6.9 (6.4-8.2) g/dL Albumin 3.5 (3.4-5.0) g/dL Globulin 3.4 Albumin/Globulin Ratio 1.03 18 Range/Units 09:18 WBC (4.0-10.0) x10^3/uL RBC (4.5-6.0) x10^6/uL Hgb (14.0-18.0) g/dL Hct (40.0-52.0) % MCV (78.0-93.0) fL MCH (26.0-32.0) pg MCHC (32.0-36.0) g/dL RDW Coeff of Honey (10.0-15.0) % Plt Count (130-400) x10^3/uL Neut % (Auto) (50.0-80.0) % Lymph % (Auto) (25.0-50.0) % [place] % (Auto) (2.0-11.0) % Eos % (Auto) (0.0-4.0) % Baso % (Auto) (0.2-1.2) % ABG pH 7.30 L (7.35-7.45) ABG pCO2 100 H* (35-45) mmHG ABG pO2 50 L* (80-105) mmHG ABG HCO3 49 H (22-26) mmol/L ABG Total CO2 > 50 H (23-27) mmol/L ABG O2 Content 77 L (95-98) % ABG Base Excess 23 H (-2-3) mmol/L Oxygen Flow Rate 6 L/min FiO2 0.44 Sodium (136-145) mmol/L Potassium (3.5-5.1) mmol/L Chloride (98-107) mmol/L Carbon Dioxide (21-32) mmol/L Anion Gap (10-20) mmol/L BUN (7-18) mg/dL Creatinine (0.70-1.30) mg/dL Est Cr Clr Drug Dosing Estimated GFR (MDRD) Glucose (74-106) mg/dL Lactic Acid (0.4-2.0) mmol/L Calcium (8.5-10.1) mg/dL Corrected Calcium (8.5-10.1) mg/dL Total Bilirubin (0.2-1.0) mg/dL AST (15-37) U/L ALT (16-63) U/L Alkaline Phosphatase (46-116) U/L C-Reactive Protein (<=0.9) mg/dL Total Protein (6.4-8.2) g/dL Albumin (3.4-5.0) g/dL Globulin Albumin/Globulin Ratio Meds: Medications Generic Name Dose Route Start Last Admin Trade Name Freq PRN Reason Stop Dose Admin Sodium Chloride 10 ml 04/22/18 09:06 Saline Flush FLUSH ASDIRECTED PRN Keep Vein Open Discontinued Medications Generic Name Dose Route Start Last Admin Trade Name Freq PRN Reason Stop Dose Admin Levalbuterol HCl 1.25 mg 04/22/18 09:13 04/22/18 09:26 Xopenex NEB 04/22/18 09:14 1.25 mg ONETIME ONE Administration Methylprednisolone Sodium Succinate 125 mg 04/22/18 09:13 04/22/18 09:21 Solu-Medrol IVPUSH 04/22/18 09:14 125 mg ONETIME ONE Administration Ondansetron HCl 4 mg 04/22/18 09:12 04/22/18 09:17 Zofran IVPUSH 04/22/18 09:13 4 mg ONETIME ONE Administration - Radiology Interpretation Free Text/Narrative:: CXR: No significant change in appearance of the chest compared to the prior examination See scanned report in EMR Departure - Departure Time of Disposition: 10:23 Disposition: DC/Tfer to Acute Hospital 02 Condition: Fair Clinical Impression: COPD with exacerbation, Hypoxia, CO2 narcosis - Discharge Information Forms: Interfacility Transfer [facility] ED Communication - ED Communication Date/Time Date: 04/22/18 Time Called: 10:17 - Discussed Case With (1) Discussed Case With (1): Admitting Provider (Dr. Pan, Hospitalist [facility]) - Conversation Summary Admitting Provider Agreed to Patient's Admission: Yes Patient Aware of Amendments fo Care Plan: Yes - Problem List Review Problem List Initiated/Reviewed/Updated: Yes - My Orders Last 24 Hours: My Active Orders 04/22/18 09:04 Chest 1V Frontal [CR] Stat 04/22/18 09:06 EKG 12 Lead [EKG Documentation Completion] [RC] STAT Sodium Chloride 0.9% [Saline Flush] 10 ml FLUSH ASDIRECTED PRN Peripheral IV Insertion Adult [OM.PC] Routine 04/22/18 09:13 RT Aerosol Therapy [RC] ASDIRECTED 04/22/18 09:37 BIPAP Adult [RT BiPAP/CPAP] [RC] ASDIRECTED - Assessment/Plan Last 24 Hours: My Active Orders 04/22/18 09:04 Chest 1V Frontal [CR] Stat 04/22/18 09:06 EKG 12 Lead [EKG Documentation Completion] [RC] STAT Sodium Chloride 0.9% [Saline Flush] 10 ml FLUSH ASDIRECTED PRN Peripheral IV Insertion Adult [OM.PC] Routine 04/22/18 09:13 RT Aerosol Therapy [RC] ASDIRECTED 04/22/18 09:37 BIPAP Adult [RT BiPAP/CPAP] [RC] ASDIRECTED Assessment:: Acute on Chronic COPD exacerbation CO2 Narcosis Hypoxia Acute Resp Failure Plan: Case discussed with Dr. Pan, Hospitalist. Patient accepted in transfer. Patient will be sent to [facility] via ALS ground. Patient agrees with POC.
[2018-04-22 09:55] LABS: CHLORIDE,CL 95 mmol/L (98-107); SODIUM,NA 137 mmol/L (136-145)
[2018-04-22 10:31] VITALS: BP 112/53
[2018-04-22] MEDS ORDERED: Levalbuterol HCl 1.25 MG/0.5 ML Neb ONE (11:31)
== END 2018-04-22 11:40 | disposition short-term general hospital (02) ==
LOC: VM.ED 09:03
DX: J96.01 Acute respiratory failure with hypoxia (principal); J44.1 Chronic obstructive pulmonary disease with (acute) exacerbation; I11.0 Hypertensive heart disease with heart failure; I50.9 Heart failure, unspecified; Z79.899 Other long term (current) drug therapy
CPT/HCPCS: 36415; 36600; 71045; 80053; 82803; 83605; 85025; 86140; 93005; 94640; 94660; 96374; 96375; 99285; J2405; J2930; 99284-GF

== ENCOUNTER 2018-12-31 00:30 | Inpatient (IN) | payer MEDICARE, OTHER ==
[2018-12-31] MEDS ORDERED: methylPREDNISolone Sodium Succinate 40 MG/1 ML SDV IVPUSH ONE (00:52)
[2018-12-31] MEDS ORDERED: Acetaminophen 500 MG Tab PO ONE (01:27)
--- NOTE | 2018-12-31 01:35 | EDM.PDOC ---
ED HPI GENERAL MEDICAL PROBLEM - General Chief Complaint: General Stated Complaint: Tired, wants to sleep all the time Time Seen by Provider: 12/31/18 00:50 Source of Information: Reports: Patient History Limitations: Reports: No Limitations - History of Present Illness INITIAL COMMENTS - FREE TEXT/NARRATIVE: Patient reports he has been tired but unable to sleep over the last few days. Also reports cataract surgery yesterday. He also complains of left sided hip pain. He is also short of breath but is at baseline due to history of COPD. In hospital October 2018 for COPD exacerbation. He denies headache, chest pain , abdominal pain, denies nausea, vomiting, blood in stool or urine. Initial oxygen saturations on presentation in mid 50% range. He tells us usually its in the 70's. Slightly tachycardic. Denies any recent illnesses. Denies fever or chills. No other complaints. Onset: Gradual Duration: Getting Worse Location: Reports: Generalized Associated Symptoms: Reports: Malaise, Shortness of Breath left hip Pain Score (Numeric/FACES): 5 - Related Data Allergies Allergy/AdvReac Type Severity Reaction Status Date / Time No Known Allergies Allergy Verified 12/31/18 00:51 Home Meds: Home Meds Albuterol [Ventolin HFA] 2 puff INH Q4H PRN 12/20/14 [History] Albuterol/Ipratropium [DuoNeb 3.0-0.5 MG/3 ML] 3 ml NEB Q6H 11/21/16 [History] Budesonide [Pulmicort] 0.5 mg NEB BIDRT 11/21/16 [History] Formoterol [Perforomist] 20 mcg NEB BIDRT 11/21/16 [History] Acetaminophen 650 mg PO Q6H PRN 04/17/18 [History] Furosemide 40 mg PO DAILY 04/17/18 [History] Azithromycin [Zithromax] 250 mg PO MOWEFR 10/26/18 [History] Lisinopril 10 mg PO DAILY 10/26/18 [History] Triamcinolone Acetonide [Kenalog 0.1% Crm] 1 dose TOP BID 10/26/18 [History] guaiFENesin [Mucinex] 600 mg PO BID 10/26/18 [History] Albuterol [Proventil Neb Soln] 2.5 mg NEB DAILY PRN 12/31/18 [History] Diclofenac Sodium [Voltaren 1% Gel] 2 gm TOP BID 12/31/18 [History] Fluticasone Propionate [Flonase] 50 mcg NS DAILY 12/31/18 [History] Hydrocortisone [Anusol-Hc] 1 gm TP BID 12/31/18 [History] Ipratropium [Atrovent] 0.5 mg NEB QID 12/31/18 [History] Non-Formulary Medication [NF Drug] 1 drop EYERT QID 12/31/18 [History] Silver Sulfadiazine [Silvadene 1% Cream 20 GM] 1 applic TOP BID 12/31/18 [ History] Past Medical History HEENT History: Reports: Allergic Rhinitis Cardiovascular History: Reports: Heart Failure, Hypertension, SOB on Exertion Respiratory History: Reports: COPD, Sleep Apnea Other Respiratory History: respiratory acidosis, respiratory failure, hypercapnia Gastrointestinal History: Reports: GERD Other Gastrointestinal History: henia Genitourinary History: Reports: None Musculoskeletal History: Reports: Osteoarthritis, Other (See Below) Other Musculoskeletal History: paget disease. cervicalgia Neurological History: Reports: None Psychiatric History: Reports: None Other Endocrine/Metabolic History: hyperlipidemia Hematologic History: Reports: None Immunologic History: Reports: None Oncologic (Cancer) History: Reports: None Dermatologic History: Reports: Other (See Below) Other Dermatologic History: lipoma of back - Infectious Disease History Infectious Disease History: Reports: Chicken Pox - Past Surgical History GI Surgical History: Reports: Hernia Repair/Other, Other (See Below) Other GI Surgeries/Procedures: ventral hernia. lap hernia repair Social & Family History - Family History Family Medical History: Noncontributory Cardiac: Reports: ID Endocrine/Metabolic: Reports: Diabetes, type II - Caffeine Use Caffeine Use: Reports: Coffee, Soda - Living Situation & Occupation Living situation: Reports: Alone Occupation: Retired ED ROS GENERAL - Review of Systems Review Of Systems: See Below Constitutional: Reports: Fatigue HEENT: Reports: No Symptoms Respiratory: Reports: Shortness of Breath Cardiovascular: Reports: No Symptoms Endocrine: Reports: Fatigue GI/Abdominal: Reports: No Symptoms : Reports: No Symptoms Musculoskeletal: Reports: Leg Pain (hip pain, chronic) Skin: Reports: No Symptoms Neurological: Reports: Weakness Psychiatric: Reports: No Symptoms Hematologic/Lymphatic: Reports: No Symptoms Immunologic: Reports: No Symptoms ED EXAM, GENERAL - Physical Exam Exam: See Below Exam Limited By: No Limitations General Appearance: Alert, WD/WN, Mild Distress Eye Exam: Bilateral Eye: EOMI, Normal Inspection, PERRL Ears: Normal TMs Nose: Normal Inspection, Normal Mucosa, No Blood Throat/Mouth: Normal Inspection, Normal Lips, Normal Teeth, Normal Gums, Normal Oropharynx, Normal Voice, No Airway Compromise Head: Atraumatic, Normocephalic Neck: Normal Inspection, Supple, Non-Tender, Full Range of Motion Respiratory/Chest: Crackles, Wheezing Cardiovascular: Irregularly Irregular Peripheral Pulses: 1+: Posterior Tibial (L), Dorsalis Pedis (L), 2+: Posterior Tibial (R), Dorsalis Pedis (R) GI/Abdominal: Normal Bowel Sounds, Soft, Non-Tender, No Organomegaly, No Distention, No Mass Back Exam: Normal Inspection, Full Range of Motion, NT Extremities: Pedal Edema (left leg 3+, right leg 1+) Neurological: Alert, Oriented, CN II-XII Intact, Normal Cognition Psychiatric: Normal Affect, Normal Mood Skin Exam: Warm, Dry, Intact, Normal Color Lymphatic: No Adenopathy Course - Vital Signs Last Recorded V/S: Last Vital Signs Temp 36.6 C 12/31/18 02:19 Pulse 81 12/31/18 02:19 Resp 20 12/31/18 02:19 BP 137/80 12/31/18 02:19 Pulse Ox 94 L 12/31/18 02:43 - Orders/Labs/Meds Orders: Active Orders 24 hr Category Date Time Status Chest 1V Frontal [CR] Stat Exams 12/31/18 00:50 Taken Sodium Chloride 0.9% [Saline Flush] Med 12/31/18 00:52 Active 10 ml FLUSH ASDIRECTED PRN Saline Lock Insert [OM.PC] Routine Oth 12/31/18 00:52 Ordered Medication Orders Acetaminophen (Tylenol) 650 mg PO Q4H PRN PRN Reason: Pain (Mild 1-3)/fever Acetaminophen (Tylenol) 650 mg PO Q6H PRN PRN Reason: Pain (mild 1-3) Hydrocodone Bitart/Acetaminophen (Conrad 325-5 Mg) 1 tab PO Q4H PRN PRN Reason: Pain (moderate 4-6) Albuterol (Proventil Neb Soln) 2.5 mg NEB Q2H PRN PRN Reason: Dyspnea Last Admin: 12/31/18 04:42 Dose: 2.5 mg Albuterol (Proventil Neb Soln) 2.5 mg NEB DAILY PRN PRN Reason: Shortness of Breath Albuterol/Ipratropium (Duoneb 3.0-0.5 Mg/3 Ml) 3 ml NEB Q6H LEAH Azithromycin (Zithromax) 250 mg PO MOWEFR LEAH Budesonide (Pulmicort) 0.5 mg NEB BIDRT [facility] Diclofenac Sodium (Voltaren 1% Gel) 2 gm TOP BID LEAH Fluticasone Propionate (Flonase) 0.0001 gm NASBOTH DAILY LEAH Furosemide (Lasix) 40 mg PO DAILY LEAH Guaifenesin (Mucinex) 600 mg PO BID ELAH Hydromorphone HCl (Dilaudid) 0.5 mg IVPUSH Q2H PRN PRN Reason: Pain (severe 7-10) Ipratropium [place] (Atrovent) 0.5 mg NEB QID LEAH Lisinopril (Prinivil) 10 mg PO DAILY [facility] Non-Formulary Medication (Albuterol) 2 puff INH Q4H PRN PRN Reason: Shortness of Breath Non-Formulary Medication (Formoterol [Perforomist]) 20 mcg NEB BIDRT [facility] Non-Formulary Medication (Hydrocortisone [Anusol-Hc]) 1 gm TP BID [facility] Non-Formulary Medication (Non-Formulary Medication [Nf Drug]) 1 drop EYERT QID [facility] Non-Formulary Medication (Triamcinolone Acetonide) 1 dose TOP BID [facility] Ondansetron HCl (Zofran Odt) 4 mg PO Q4H PRN PRN Reason: nausea, able to take PO Silver Sulfadiazine (Silvadene 1% Cream 50 Gm) gm TOP BID [facility] Sodium Chloride (Saline Flush) 10 ml FLUSH ASDIRECTED PRN PRN Reason: Keep Vein Open Temazepam (Restoril) 15 mg PO BEDTIME PRN PRN Reason: Sleep Labs: Laboratory Tests 12/31/18 12/31/18 12/31/18 Range/Units 01:05 01:05 01:05 WBC 4.4 (4.0-10.0) x10^3/uL RBC 4.44 L (4.5-6.0) x10^6/uL Hgb 15.2 (14.0-18.0) g/dL Hct 48.6 (40.0-52.0) % MCV 109.5 H (78.0-93.0) fL MCH 34.2 H (26.0-32.0) pg MCHC 31.3 L (32.0-36.0) g/dL RDW Coeff of Honey 13.3 (10.0-15.0) % Plt Count 74 L (130-400) x10^3/uL Neut % (Auto) 53.2 (50.0-80.0) % Lymph % (Auto) 23.4 L (25.0-50.0) % [place] % (Auto) 20.0 H (2.0-11.0) % Eos % (Auto) 2.3 (0.0-4.0) % Baso % (Auto) 1.1 (0.2-1.2) % POC ABG pH POC ABG pCO2 POC ABG pO2 POC ABG HCO3 POC ABG Total CO2 POC ABG O2 Sat POC ABG Base Excess POC VBG pH POC VBG pCO2 POC VBG pO2 POC VBG HCO3 POC VBG Total CO2 POC VBG Base Excess O2 Delivery Device POC O2 Flow Rate POC FiO2 Sodium 146 H (136-145) mmol/L Potassium 3.1 L (3.5-5.1) mmol/L Chloride 100 (98-107) mmol/L Carbon Dioxide 43 H D (21-32) mmol/L Anion Gap 6.1 L (10-20) mmol/L BUN 16 (7-18) mg/dL Creatinine 1.0 (0.70-1.30) mg/dL Est Cr Clr Drug Dosing TNP Estimated GFR (MDRD) > 60 Glucose 136 H (74-106) mg/dL Lactic Acid 1.1 (0.4-2.0) mmol/L Calcium 9.5 (8.5-10.1) mg/dL Corrected Calcium 10.22 H (8.5-10.1) mg/dL Magnesium 1.7 L (1.8-2.4) mg/dL Total Bilirubin 1.1 H (0.2-1.0) mg/dL AST 24 (15-37) U/L ALT 23 (16-63) U/L Alkaline Phosphatase 79 (46-116) U/L Troponin I 0.047 (<=0.056) ng/mL C-Reactive Protein 0.4 (<=0.9) mg/dL NT-Pro-B Natriuret Pep 1327 H (<=450) pg/mL Total Protein 5.6 L (6.4-8.2) g/dL Albumin 3.1 L (3.4-5.0) g/dL Globulin 2.5 Albumin/Globulin Ratio 1.24 TSH, Ultra Sensitive 0.922 (0.358-3.74) uIU/mL POC Result Comm Urine Color (YELLOW) Urine Appearance (CLEAR) Urine pH (5.0-8.0) Ur Specific [place] Urine Protein (NEGATIVE) mg/dL Urine Glucose (UA) (NEGATIVE) mg/dL Urine Ketones (NEGATIVE) mg/dL Urine Occult Blood (NEGATIVE) Urine Nitrite (NEGATIVE) Urine Bilirubin (NEGATIVE) Urine Urobilinogen (0.2) EU/dL Ur Leukocyte Esterase (NEGATIVE) Urine RBC (NOT SEEN) /HPF Urine WBC (NOT SEEN) /HPF Ur Squamous Epith Cells (NEGATIVE) /HPF Amorphous Sediment Urine Bacteria (NEGATIVE) /HPF Urine Mucus (NEGATIVE) /LPF 12/31/18 12/31/18 12/31/18 Range/Units 01:15 01:16 01:50 WBC (4.0-10.0) x10^3/uL RBC (4.5-6.0) x10^6/uL Hgb (14.0-18.0) g/dL Hct (40.0-52.0) % MCV (78.0-93.0) fL MCH (26.0-32.0) pg MCHC (32.0-36.0) g/dL RDW Coeff of Honey (10.0-15.0) % Plt Count (130-400) x10^3/uL Neut % (Auto) (50.0-80.0) % Lymph % (Auto) (25.0-50.0) % [place] % (Auto) (2.0-11.0) % Eos % (Auto) (0.0-4.0) % Baso % (Auto) (0.2-1.2) % POC ABG pH Cancelled 7.289 L* POC ABG pCO2 Cancelled 89 H* POC ABG pO2 Cancelled 42 L* POC ABG HCO3 Cancelled 43 H POC ABG Total CO2 Cancelled 45 H POC ABG O2 Sat Cancelled 68 L POC ABG Base Excess Cancelled 16 H POC VBG pH Cancelled POC VBG pCO2 Cancelled POC VBG pO2 Cancelled POC VBG HCO3 Cancelled POC VBG Total CO2 Cancelled POC VBG Base Excess Cancelled O2 Delivery Device Cancelled POC O2 Flow Rate Cancelled POC FiO2 Cancelled 0.32 Sodium (136-145) mmol/L Potassium (3.5-5.1) mmol/L Chloride (98-107) mmol/L Carbon Dioxide (21-32) mmol/L Anion Gap (10-20) mmol/L BUN (7-18) mg/dL Creatinine (0.70-1.30) mg/dL Est Cr Clr Drug Dosing Estimated GFR (MDRD) Glucose (74-106) mg/dL Lactic Acid (0.4-2.0) mmol/L Calcium (8.5-10.1) mg/dL Corrected Calcium (8.5-10.1) mg/dL Magnesium (1.8-2.4) mg/dL Total Bilirubin (0.2-1.0) mg/dL AST (15-37) U/L ALT (16-63) U/L Alkaline Phosphatase (46-116) U/L Troponin I (<=0.056) ng/mL C-Reactive Protein (<=0.9) mg/dL NT-Pro-B Natriuret Pep (<=450) pg/mL Total Protein (6.4-8.2) g/dL Albumin (3.4-5.0) g/dL Globulin Albumin/Globulin Ratio TSH, Ultra Sensitive (0.358-3.74) uIU/mL POC Result Comm Called critical res Urine Color Dark yellow H (YELLOW) Urine Appearance Clear (CLEAR) Urine pH 7.0 (5.0-8.0) Ur Specific [place] 1.020 Urine Protein 30 H (NEGATIVE) mg/dL Urine Glucose (UA) Negative (NEGATIVE) mg/dL Urine Ketones Negative (NEGATIVE) mg/dL Urine Occult Blood Negative (NEGATIVE) Urine Nitrite Negative (NEGATIVE) Urine Bilirubin Negative (NEGATIVE) Urine Urobilinogen 4.0 H (0.2) EU/dL Ur Leukocyte Esterase Negative (NEGATIVE) Urine RBC 0-5 (NOT SEEN) /HPF Urine WBC 0-5 (NOT SEEN) /HPF Ur Squamous Epith Cells Rare (NEGATIVE) /HPF Amorphous Sediment Few Urine Bacteria Not seen (NEGATIVE) /HPF Urine Mucus Rare H (NEGATIVE) /LPF Meds: Medications Generic Name Dose Route Start Last Admin Trade Name Freq PRN Reason Stop Dose Admin Acetaminophen 650 mg 12/31/18 02:19 Tylenol PO Q4H PRN Pain (Mild 1-3)/fever Acetaminophen 650 mg 12/31/18 05:41 Tylenol PO Q6H PRN Pain (mild 1-3) Hydrocodone Bitart/Acetaminophen 1 tab 12/31/18 02:19 Conrad 325-5 Mg PO Q4H PRN Pain (moderate 4-6) Albuterol 2.5 mg 12/31/18 02:19 12/31/18 04:42 Proventil Neb Soln NEB 2.5 mg Q2H PRN Administration Dyspnea Albuterol 2.5 mg 12/31/18 05:41 Proventil Neb Soln NEB DAILY PRN Shortness of Breath Albuterol/Ipratropium 3 ml 12/31/18 05:45 Duoneb 3.0-0.5 Mg/3 Ml NEB Q6H LEAH Azithromycin 250 mg 01/01/19 05:41 Zithromax PO MOWEFR LEAH Budesonide 0.5 mg 12/31/18 07:00 Pulmicort NEB BIDRT LEAH Diclofenac Sodium 2 gm 12/31/18 08:00 Voltaren 1% Gel TOP BID LEAH Fluticasone Propionate 0.0001 gm 12/31/18 08:00 Flonase NASBOTH DAILY LEAH Furosemide 40 mg 12/31/18 08:00 Lasix PO DAILY LEAH Guaifenesin 600 mg 12/31/18 08:00 Mucinex PO BID LEAH Hydromorphone HCl 0.5 mg 12/31/18 02:19 Dilaudid IVPUSH Q2H PRN Pain (severe 7-10) Ipratropium [place] 0.5 mg 12/31/18 08:00 Atrovent NEB QID LEAH Lisinopril 10 mg 12/31/18 08:00 Prinivil PO DAILY [facility] Non-Formulary Medication 2 puff 12/31/18 05:41 Albuterol INH Q4H PRN Shortness of Breath Non-Formulary Medication 20 mcg 12/31/18 07:00 Formoterol [Perforomist] NEB BIDRT [facility] Non-Formulary Medication 1 gm 12/31/18 08:00 Hydrocortisone [Anusol-Hc] TP BID [facility] Non-Formulary Medication 1 drop 12/31/18 08:00 Non-Formulary Medication [Nf Drug] EYERT QID [facility] Non-Formulary Medication 1 dose 12/31/18 08:00 Triamcinolone Acetonide TOP BID [facility] Ondansetron HCl 4 mg 12/31/18 02:19 Zofran Odt PO Q4H PRN nausea, able to take PO Silver Sulfadiazine gm 12/31/18 08:00 Silvadene 1% Cream 50 Gm TOP BID [facility] Sodium Chloride 10 ml 12/31/18 00:52 Saline Flush FLUSH ASDIRECTED PRN Keep Vein Open Temazepam 15 mg 12/31/18 02:19 Restoril PO BEDTIME PRN Sleep Discontinued Medications Generic Name Dose Route Start Last Admin Trade Name Freq PRN Reason Stop Dose Admin Acetaminophen 500 mg 12/31/18 01:27 12/31/18 01:31 Tylenol Extra Strength PO 12/31/18 01:28 500 mg ONETIME ONE Administration Ceftriaxone Sodium 2 gm 12/31/18 02:07 12/31/18 02:18 Rocephin IVPUSH 12/31/18 02:08 2 gm STAT ONE Administration Methylprednisolone Sodium Succinate 40 mg 12/31/18 00:52 12/31/18 01:25 Solu-Medrol IVPUSH 12/31/18 00:53 40 mg ONETIME ONE Administration Departure - Departure Time of Disposition: 02:00 Disposition: Admitted As Inpatient 64 Condition: Fair Clinical Impression: COPD with exacerbation, Hypoxia Diastolic CHF Qualifiers: Heart failure chronicity: chronic Qualified Code(s): I50.32 - Chronic diastolic (congestive) heart failure - Discharge Information *PRESCRIPTION DRUG MONITORING PROGRAM REVIEWED*: Not Applicable *COPY OF PRESCRIPTION DRUG MONITORING REPORT IN PATIENT RUPINDER: Not Applicable ED Communication - ED Communication Date/Time Date: 12/31/18 Time Called: 02:09 - Discussed Case With (1) Discussed Case With (1): Admitting Provider (Dr. Henry Vasquez contacted regarding patient. He will admit, Dr. Armenta to be attending in AM) - Problem List & Annotations (1) COPD with exacerbation SNOMED Code(s): 518978900 Code(s): J44.1 - CHRONIC OBSTRUCTIVE PULMONARY DISEASE W (ACUTE) EXACERBATION Status: Acute Priority: Medium Current Visit: No (2) Hypoxia SNOMED Code(s): 178392661 Code(s): R09.02 - HYPOXEMIA Status: Acute Current Visit: No (3) Diastolic CHF SNOMED Code(s): 384155755, 870832000 Code(s): I50.30 - UNSPECIFIED DIASTOLIC (CONGESTIVE) HEART FAILURE Status: Chronic Current Visit: No Qualifiers: Heart failure chronicity: chronic Qualified Code(s): I50.32 - Chronic diastolic (congestive) heart failure - Problem List Review Problem List Initiated/Reviewed/Updated: Yes - My Orders Last 24 Hours: My Active Orders 12/31/18 00:50 Chest 1V Frontal [CR] Stat 12/31/18 00:52 Sodium Chloride 0.9% [Saline Flush] 10 ml FLUSH ASDIRECTED PRN Saline Lock Insert [OM.PC] Routine - Assessment/Plan Last 24 Hours: My Active Orders 12/31/18 00:50 Chest 1V Frontal [CR] Stat 12/31/18 00:52 Sodium Chloride 0.9% [Saline Flush] 10 ml FLUSH ASDIRECTED PRN Saline Lock Insert [OM.PC] Routine Assessment:: hypoxia CHF COPD Plan: Admit to acute
[2018-12-31 01:47] LABS: CHLORIDE,CL 100 mmol/L (98-107); SODIUM,NA 146 mmol/L (136-145)
[2018-12-31 01:49] LABS: ANION GAP 6.1 mmol/L (10-20)
[2018-12-31] MEDS ORDERED: cefTRIAXone 2 GM Vial IVPUSH ONE (02:07)
[2018-12-31] MEDS ORDERED: Ondansetron 4 MG Tab.DIS PO PRN (02:19)
[2018-12-31] MEDS ORDERED: HYDROmorphone 1 MG/ML Syringe IVPUSH PRN (02:19)
[2018-12-31] MEDS ORDERED: Temazepam 15 MG Cap PO PRN (02:19)
[2018-12-31] MEDS ORDERED: Acetaminophen/HYDROcodone 325-5 MG Tab PO PRN (02:19)
[2018-12-31] MEDS: Albuterol 0.083% 2.5 MG/3 ML Neb Soln NEB PRN ×2 (04:42→07:38)
[2018-12-31] MEDS ORDERED: Non-Formulary Medication 1 Each (Albuterol 2 PUFF) INH PRN (05:41)
[2018-12-31] MEDS ORDERED: Acetaminophen 325 MG Tab PO PRN (05:41)
[2018-12-31] MEDS ORDERED: Albuterol 0.083% 2.5 MG/3 ML Neb Soln NEB PRN (05:41)
[2018-12-31] MEDS: Albuterol/Ipratropium 3.0-0.5 MG/3 ML Neb Soln NEB SCH ×5 (06:18→23:18)
[2018-12-31] MEDS: Budesonide 0.5 MG/2 ML Neb Susp NEB SCH ×2 (06:22→19:50)
[2018-12-31] MEDS: Ipratropium 0.02% 0.5 MG/2.5 ML Neb Soln NEB SCH ×3 (07:38→16:23)
[2018-12-31] MEDS: Furosemide 40 MG Tab PO SCH (07:38)
[2018-12-31] MEDS: Lisinopril 10 MG Tab PO SCH (07:38)
[2018-12-31] MEDS: Fluticasone Propionate Nasal Spray 16 GM Bottle NASBOTH SCH (07:38)
[2018-12-31] MEDS: Arformoterol 15 MCG/2 ML Neb Soln INH SCH ×2 (07:39→19:50)
[2018-12-31] MEDS: IMPRIMIS EYERT SCH ×4 (07:42→20:02)
[2018-12-31] MEDS: guaiFENesin 600 MG Tab.ER PO SCH ×2 (07:43→19:50)
[2018-12-31] MEDS: Triamcinolone Acetonide 0.1% Crm 15 GM Tube TOP SCH ×2 (07:43→20:04)
[2018-12-31] MEDS ORDERED: Hydrocortisone 2.5% Crm 30 GM Tube TOP SCH (08:00)
[2018-12-31] MEDS ORDERED: Silver Sulfadiazine 1% Crm 50 GM Tube TOP SCH (08:00)
[2018-12-31] MEDS: Diclofenac Sodium 1% Gel 100 GM Tube TOP SCH ×2 (09:03→20:03)
--- NOTE | 2018-12-31 09:37 | CR ---
[id number] RAD/RAD Chest PA or AP 1V EXAM: RAD Chest PA or AP 1V INDICATION: SHORTNESS OF BREATH. COMPARISON: Multiple priors, most recent from October 26, 2018. DISCUSSION: Again seen is an asymmetric elevated right hemidiaphragm with right lung base atelectasis and vascular crowding. Findings are similar to numerous prior examinations dating to November 2017. Additionally, there is chronic opacification in the left lung base, seen on multiple prior examinations as well. Findings are possibly sequela of acute pneumonia, however is less likely given persistence over the imaging interval. Findings are more consistent with atelectasis/scarring or less likely sequela of chronic inflammation/infectious process. Cardiomediastinal silhouette remains enlarged with central vascular congestion, also unchanged from numerous prior examinations. IMPRESSION: As above. Cyrus Hansen MD 12/31/18 0934 Thank you for allowing us to participate in the care of your patient.
[2018-12-31] MEDS ORDERED: Magnesium Sulfate/Water 2 GM in Premix Bag 1 BAG IV ONE (14:28)
[2018-12-31] MEDS ORDERED: Enoxaparin 40 MG/0.4 ML Syringe SUBCUT SCH (14:30)
[2018-12-31] MEDS ORDERED: D5 1/2 NS w/ 20 mEq/L KCl 1,000 ML IV SCH (14:30)
--- NOTE | 2018-12-31 14:39 | PCM.HP ---
H&P History of Present Illness - General Date of Service: 12/31/18 Admit Problem/Dx: Admission Diagnosis/Problem Admission Diagnosis/Problem Hypoxia Source of Information: Patient, Old Records, Provider - History of Present Illness Initial Comments - Free Text/Narative: Chief complaint: Sleepiness. History of present illness: Patient presented to the ER late last night complaining of excessive tiredness. 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 He has severe obstructive disease probably with a mixed restrictive pattern. His PCO2 appears around 79 at baseline. Mild exacerbation in the ER visits 89 with a pH of 7.3. He wears oxygen chronically at home 2-6 L. He is on close to maximum therapy medically with nebs and antibiotics inhalers daliresp daily. Frequent admissions for similar symptoms. Usually he is able to blow off CO2 to with BiPAP and then mental status improves. They are working on getting home BiPAP machine this is a very long process that this taken a number of months. Past medical history, acute on chronic respiratory failure, acute on chronic respiratory acidosis, Paget's disease of bone, morbid obesity, hyperlipidemia, chronic hypoxia, hypertension, hypercapnia, and severe COPD with mixed restriction. Medications: Atrovent, albuterol, azithromycin, Mucinex, Perforomist, lisinopril , DuoNeb, Lasix, home oxygen. Former smoker, only brief history. Family history noncontributory. Review of systems denies fever denies chest pain denies vomiting denies diarrhea denies dysuria. Physical exam: He is drowsy has BiPAP in place, he is fairly easy to arouse. Denies any pain currently. Lungs reveal decreased air movement bilaterally. Heart regular rate and rhythm, abdomen soft nontender, extremity is warm well perfused trace to 1+ pitting edema. Assessment and plan: Acute exacerbation of chronic respiratory failure with CO2 at 89 versus more recent baseline of 79 from combo of severe COPD and obesity hypoventilation syndrome. X-ray is unchanged white count and CRP are normal. Don't see a large infectious component. We will continue Rocephin for a couple of days until he improves clinically given the severity of his disease. We will do Solu-Medrol 40 mg IV twice a day, other than chronic daily steroids he' s basically on maximal medical therapy at home. RT is seen him, on BiPAP of 11 and 8 ideally he will get this machine to use at home soon. His medium-term prognosis for this degree of chronic respiratory failure and CO2 retention is otherwise relatively poor. He has mild hypernatremia and hypokalemia, mag a bit low. We will replace these with some IV fluids, not taking a lot orally currently while he is on BiPAP. 40 mg daily Lovenox DVT prophylaxis. DNR. left hip Pain Score (Numeric/FACES): 5 - Related Data Allergies/Adverse Reactions: Allergies Allergy/AdvReac Type Severity Reaction Status Date / Time No Known Allergies Allergy Verified 12/31/18 00:51 Home Medications: Home Meds Albuterol [Ventolin HFA] 2 puff INH Q4H PRN 12/20/14 [History] Albuterol/Ipratropium [DuoNeb 3.0-0.5 MG/3 ML] 3 ml NEB Q6H 11/21/16 [History] Budesonide [Pulmicort] 0.5 mg NEB BIDRT 11/21/16 [History] Formoterol [Perforomist] 20 mcg NEB BIDRT 11/21/16 [History] Acetaminophen 650 mg PO Q6H PRN 04/17/18 [History] Furosemide 40 mg PO DAILY 04/17/18 [History] Azithromycin [Zithromax] 250 mg PO MOWEFR 10/26/18 [History] Lisinopril 10 mg PO DAILY 10/26/18 [History] Triamcinolone Acetonide [Kenalog 0.1% Crm] 1 dose TOP BID 10/26/18 [History] guaiFENesin [Mucinex] 600 mg PO BID 10/26/18 [History] Albuterol [Proventil Neb Soln] 2.5 mg NEB DAILY PRN 12/31/18 [History] Diclofenac Sodium [Voltaren 1% Gel] 2 gm TOP BID 12/31/18 [History] Fluticasone Propionate [Flonase] 50 mcg NS DAILY 12/31/18 [History] Hydrocortisone [Anusol-Hc] 1 gm TP BID 12/31/18 [History] Ipratropium [Atrovent] 0.5 mg NEB QID 12/31/18 [History] Non-Formulary Medication [NF Drug] 1 drop EYERT QID 12/31/18 [History] Silver Sulfadiazine [Silvadene 1% Cream 20 GM] 1 applic TOP BID 12/31/18 [ History] Past Medical History HEENT History: Reports: Allergic Rhinitis Cardiovascular History: Reports: Heart Failure, Hypertension, SOB on Exertion Respiratory History: Reports: COPD, Sleep Apnea Other Respiratory History: respiratory acidosis, respiratory failure, hypercapnia Gastrointestinal History: Reports: GERD Other Gastrointestinal History: henia Genitourinary History: Reports: None Musculoskeletal History: Reports: Osteoarthritis, Other (See Below) Other Musculoskeletal History: paget disease. cervicalgia Neurological History: Reports: None Psychiatric History: Reports: None Other Endocrine/Metabolic History: hyperlipidemia Hematologic History: Reports: None Immunologic History: Reports: None Oncologic (Cancer) History: Reports: None Dermatologic History: Reports: Other (See Below) Other Dermatologic History: lipoma of back - Infectious Disease History Infectious Disease History: Reports: Chicken Pox - Past Surgical History GI Surgical History: Reports: Hernia Repair/Other, Other (See Below) Other GI Surgeries/Procedures: ventral hernia. lap hernia repair Social & Family History - Family History Family Medical History: Noncontributory Cardiac: Reports: PR Endocrine/Metabolic: Reports: Diabetes, type II - Tobacco Use Smoking Status *Q: Former Smoker Used Tobacco, but Quit: No - Caffeine Use Caffeine Use: Reports: Coffee, Soda - Recreational Drug Use Recreational Drug Use: No Drug Use in Last 12 Months: No - Living Situation & Occupation Living situation: Reports: Alone Occupation: Retired H&P Review of Systems - Review of Systems: Review Of Systems: See Below Exam - Exam Exam: See Below - Vital Signs Vital Signs: Last Vital Signs Temp 36.3 C 12/31/18 14:00 Pulse 79 12/31/18 14:00 Resp 14 12/31/18 06:00 BP 111/57 L 12/31/18 14:00 Pulse Ox 92 L 12/31/18 10:00 Weight: 108.499 kg - Patient Data Lab Results Last 24 hrs: Laboratory Results - last 24 hr 12/31/18 12/31/18 12/31/18 Range/Units 01:05 01:05 01:05 WBC 4.4 (4.0-10.0) x10^3/uL RBC 4.44 L (4.5-6.0) x10^6/uL Hgb 15.2 (14.0-18.0) g/dL Hct 48.6 (40.0-52.0) % MCV 109.5 H (78.0-93.0) fL MCH 34.2 H (26.0-32.0) pg MCHC 31.3 L (32.0-36.0) g/dL RDW Coeff of Honey 13.3 (10.0-15.0) % Plt Count 74 L (130-400) x10^3/uL Neut % (Auto) 53.2 (50.0-80.0) % Lymph % (Auto) 23.4 L (25.0-50.0) % [place] % (Auto) 20.0 H (2.0-11.0) % Eos % (Auto) 2.3 (0.0-4.0) % Baso % (Auto) 1.1 (0.2-1.2) % POC ABG pH POC ABG pCO2 POC ABG pO2 POC ABG HCO3 POC ABG Total CO2 POC ABG O2 Sat POC ABG Base Excess POC VBG pH POC VBG pCO2 POC VBG pO2 POC VBG HCO3 POC VBG Total CO2 POC VBG Base Excess O2 Delivery Device POC O2 Flow Rate POC FiO2 Sodium 146 H (136-145) mmol/L Potassium 3.1 L (3.5-5.1) mmol/L Chloride 100 (98-107) mmol/L Carbon Dioxide 43 H D (21-32) mmol/L Anion Gap 6.1 L (10-20) mmol/L BUN 16 (7-18) mg/dL Creatinine 1.0 (0.70-1.30) mg/dL Est Cr Clr Drug Dosing TNP Estimated GFR (MDRD) > 60 Glucose 136 H (74-106) mg/dL Lactic Acid 1.1 (0.4-2.0) mmol/L Calcium 9.5 (8.5-10.1) mg/dL Corrected Calcium 10.22 H (8.5-10.1) mg/dL Magnesium 1.7 L (1.8-2.4) mg/dL Total Bilirubin 1.1 H (0.2-1.0) mg/dL AST 24 (15-37) U/L ALT 23 (16-63) U/L Alkaline Phosphatase 79 (46-116) U/L Troponin I 0.047 (<=0.056) ng/mL C-Reactive Protein 0.4 (<=0.9) mg/dL NT-Pro-B Natriuret Pep 1327 H (<=450) pg/mL Total Protein 5.6 L (6.4-8.2) g/dL Albumin 3.1 L (3.4-5.0) g/dL Globulin 2.5 Albumin/Globulin Ratio 1.24 TSH, Ultra Sensitive 0.922 (0.358-3.74) uIU/mL POC Result Comm Urine Color (YELLOW) Urine Appearance (CLEAR) Urine pH (5.0-8.0) Ur Specific [place] Urine Protein (NEGATIVE) mg/dL Urine Glucose (UA) (NEGATIVE) mg/dL Urine Ketones (NEGATIVE) mg/dL Urine Occult Blood (NEGATIVE) Urine Nitrite (NEGATIVE) Urine Bilirubin (NEGATIVE) Urine Urobilinogen (0.2) EU/dL Ur Leukocyte Esterase (NEGATIVE) Urine RBC (NOT SEEN) /HPF Urine WBC (NOT SEEN) /HPF Ur Squamous Epith Cells (NEGATIVE) /HPF Amorphous Sediment Urine Bacteria (NEGATIVE) /HPF Urine Mucus (NEGATIVE) /LPF 12/31/18 12/31/18 12/31/18 Range/Units 01:15 01:16 01:50 WBC (4.0-10.0) x10^3/uL RBC (4.5-6.0) x10^6/uL Hgb (14.0-18.0) g/dL Hct (40.0-52.0) % MCV (78.0-93.0) fL MCH (26.0-32.0) pg MCHC (32.0-36.0) g/dL RDW Coeff of Honey (10.0-15.0) % Plt Count (130-400) x10^3/uL Neut % (Auto) (50.0-80.0) % Lymph % (Auto) (25.0-50.0) % [place] % (Auto) (2.0-11.0) % Eos % (Auto) (0.0-4.0) % Baso % (Auto) (0.2-1.2) % POC ABG pH Cancelled 7.289 L* POC ABG pCO2 Cancelled 89 H* POC ABG pO2 Cancelled 42 L* POC ABG HCO3 Cancelled 43 H POC ABG Total CO2 Cancelled 45 H POC ABG O2 Sat Cancelled 68 L POC ABG Base Excess Cancelled 16 H POC VBG pH Cancelled POC VBG pCO2 Cancelled POC VBG pO2 Cancelled POC VBG HCO3 Cancelled POC VBG Total CO2 Cancelled POC VBG Base Excess Cancelled O2 Delivery Device Cancelled POC O2 Flow Rate Cancelled POC FiO2 Cancelled 0.32 Sodium (136-145) mmol/L Potassium (3.5-5.1) mmol/L Chloride (98-107) mmol/L Carbon Dioxide (21-32) mmol/L Anion Gap (10-20) mmol/L BUN (7-18) mg/dL Creatinine (0.70-1.30) mg/dL Est Cr Clr Drug Dosing Estimated GFR (MDRD) Glucose (74-106) mg/dL Lactic Acid (0.4-2.0) mmol/L Calcium (8.5-10.1) mg/dL Corrected Calcium (8.5-10.1) mg/dL Magnesium (1.8-2.4) mg/dL Total Bilirubin (0.2-1.0) mg/dL AST (15-37) U/L ALT (16-63) U/L Alkaline Phosphatase (46-116) U/L Troponin I (<=0.056) ng/mL C-Reactive Protein (<=0.9) mg/dL NT-Pro-B Natriuret Pep (<=450) pg/mL Total Protein (6.4-8.2) g/dL Albumin (3.4-5.0) g/dL Globulin Albumin/Globulin Ratio TSH, Ultra Sensitive (0.358-3.74) uIU/mL POC Result Comm Called critical res Urine Color Dark yellow H (YELLOW) Urine Appearance Clear (CLEAR) Urine pH 7.0 (5.0-8.0) Ur Specific [place] 1.020 Urine Protein 30 H (NEGATIVE) mg/dL Urine Glucose (UA) Negative (NEGATIVE) mg/dL Urine Ketones Negative (NEGATIVE) mg/dL Urine Occult Blood Negative (NEGATIVE) Urine Nitrite Negative (NEGATIVE) Urine Bilirubin Negative (NEGATIVE) Urine Urobilinogen 4.0 H (0.2) EU/dL Ur Leukocyte Esterase Negative (NEGATIVE) Urine RBC 0-5 (NOT SEEN) /HPF Urine WBC 0-5 (NOT SEEN) /HPF Ur Squamous Epith Cells Rare (NEGATIVE) /HPF Amorphous Sediment Few Urine Bacteria Not seen (NEGATIVE) /HPF Urine Mucus Rare H (NEGATIVE) /LPF Result Diagrams: 12/31/18 01:05 12/31/18 01:05 Problem List Initiated/Reviewed/Updated: Yes Orders Last 24hrs: Active Orders 24 hr Category Date Time Status Patient Status [ADT] Routine ADT 12/31/18 02:05 Active Patient Status [ADT] Routine ADT 12/31/18 02:19 Active BIPAP Adult [RT BiPAP/CPAP] [RC] 08,20 Care 12/31/18 02:43 Active Dietary Supplements [RC] BIDMEALS Care 12/31/18 14:25 Ordered Oxygen Therapy [RC] .PRN Care 12/31/18 02:19 Active Pulse Oximetry [RC] 06,10,14,18,22,02 Care 12/31/18 02:20 Active RT Aerosol Therapy [RC] ASDIRECTED Care 12/31/18 02:26 Active Up With Assistance [RC] 08,20 Care 12/31/18 02:19 Active VTE/DVT Education [RC] .PRN Care 12/31/18 02:19 Active Vital Signs [RC] 06,10,14,18,22,02 Care 12/31/18 02:19 Active 2 Gram Sodium Diet [DIET] Diet 12/31/18 Breakfast Active BASIC METABOLIC PANEL,BMP [CHEM] AM Lab 01/01/19 05:11 Ordered BLOOD GAS VENOUS [BG] Routine Lab 01/01/19 07:00 Ordered CBC W/O DIFF,HEMOGRAM [HEME] Q3D Lab 01/01/19 07:00 Ordered CBC W/O DIFF,HEMOGRAM [HEME] Q3D Lab 01/04/19 07:00 Ordered CBC W/O DIFF,HEMOGRAM [HEME] Q3D Lab 01/07/19 07:00 Ordered CBC W/O DIFF,HEMOGRAM [HEME] Q3D Lab 01/10/19 07:00 Ordered CBC W/O DIFF,HEMOGRAM [HEME] Q3D Lab 01/13/19 07:00 Ordered CBC W/O DIFF,HEMOGRAM [HEME] Q3D Lab 01/16/19 07:00 Ordered CBC W/O DIFF,HEMOGRAM [HEME] Q3D Lab 01/19/19 07:00 Ordered MAGNESIUM [CHEM] AM Lab 01/01/19 05:11 Ordered Acetaminophen [Tylenol] Med 12/31/18 02:19 Active 650 mg PO Q4H PRN Acetaminophen/HYDROcodone [[place] 325-5 MG] Med 12/31/18 02:19 Active 1 tab PO Q4H PRN Albuterol Med 12/31/18 05:41 Pending 2 puff INH Q4H PRN Albuterol [Proventil Neb Soln] Med 12/31/18 02:19 Active 2.5 mg NEB Q2H PRN Albuterol/Ipratropium [DuoNeb 3.0-0.5 MG/3 ML] Med 12/31/18 05:45 Active 3 ml NEB Q6H Arformoterol [Brovana] Med 12/31/18 07:30 Active 15 mcg INH BIDRT Azithromycin [Zithromax] Med 01/01/19 05:41 Active 250 mg PO MOWEFR Budesonide [Pulmicort] Med 12/31/18 07:00 Active 0.5 mg NEB BIDRT Dextrose 5%-1/2 NS w/ 20 mEq/L KCl @ 125 mL/Hr (1000 mL Med 12/31/18 14:30 Ordered ) D5 1/2 NS w/ 20 mEq/L KCl 1,000 ml IV ASDIRECTED Diclofenac Sodium [Voltaren 1% Gel] Med 12/31/18 08:00 Active 2 gm TOP BID Enoxaparin [Lovenox] Med 12/31/18 14:30 Ordered 40 mg SUBCUT Q24H Fluticasone Propionate [Flonase] Med 12/31/18 08:00 Active 0 gm NASBOTH DAILY Furosemide [Lasix] Med 12/31/18 08:00 Active 40 mg PO DAILY HYDROmorphone [Dilaudid] Med 12/31/18 02:19 Active 0.5 mg IVPUSH Q2H PRN Hydrocortisone [Hydrocortisone 2.5% Crm] Med 12/31/18 08:00 Active 0 gm TOP BID Ipratropium [Atrovent] Med 12/31/18 08:00 Active 0.5 mg NEB QID Lisinopril [Prinivil] Med 12/31/18 08:00 Active 10 mg PO DAILY Magnesium Sulfate/Water [Magnesium Sulfate 2 GM in Med 12/31/18 14:28 Ordered Water 50 ML] 2 gm Premix Bag 1 bag IV ONETIME Non-Formulary Medication [NF Drug] Med 12/31/18 08:00 Active 1 drop EYERT QID Non-Formulary Medication [Nf Drug] Med 01/12/19 08:00 Active 1 drop EYERT BID Non-Formulary Medication [Nf Drug] Med 01/19/19 08:00 Active 1 drop EYERT DAILY Non-Formulary Medication [Nf Drug] Med 01/05/19 08:00 Active 1 drop EYERT TID Ondansetron [Zofran ODT] Med 12/31/18 02:19 Active 4 mg PO Q4H PRN Silver Sulfadiazine [Silvadene 1% Cream 50 GM] Med 12/31/18 08:00 Active 0 gm TOP BID Sodium Chloride 0.9% [Saline Flush] Med 12/31/18 00:52 Active 10 ml FLUSH ASDIRECTED PRN Temazepam [Restoril] Med 12/31/18 02:19 Active 15 mg PO BEDTIME PRN Triamcinolone Acetonide [Triamcinolone Acetonide 0.1% Med 12/31/18 08:00 Active Crm] 0 gm TOP BID cefTRIAXone [Rocephin] Med 01/01/19 08:00 Ordered 1 gm IVPUSH DAILY guaiFENesin [Mucinex] Med 12/31/18 08:00 Active 600 mg PO BID methylPREDNISolone Sod Succ [Solu-MEDROL] Med 12/31/18 14:30 Ordered 40 mg IVPUSH Q12H Saline Lock Insert [OM.PC] Routine Oth 12/31/18 00:52 Ordered Resuscitation Status Routine Resus Stat 12/31/18 02:19 Ordered Medication Orders Acetaminophen (Tylenol) 650 mg PO Q4H PRN PRN Reason: Pain (Mild 1-3)/fever Hydrocodone Bitart/Acetaminophen ([place] 325-5 Mg) 1 tab PO Q4H PRN PRN Reason: Pain (moderate 4-6) Albuterol (Proventil Neb Soln) 2.5 mg NEB Q2H PRN PRN Reason: Dyspnea Last Admin: 12/31/18 07:38 Dose: 2.5 mg Admin: 12/31/18 04:42 Dose: 2.5 mg Albuterol/Ipratropium (Duoneb 3.0-0.5 Mg/3 Ml) 3 ml NEB Q6H [facility] Last Admin: 12/31/18 11:32 Dose: 3 ml Admin: 12/31/18 06:18 Dose: 3 ml Arformoterol Tartrate (Brovana) 15 mcg INH BIDRT [facility] Last Admin: 12/31/18 07:39 Dose: 15 mcg Azithromycin (Zithromax) 250 mg PO MOWEFR [facility] Budesonide (Pulmicort) 0.5 mg NEB BIDRT [facility] Last Admin: 12/31/18 06:22 Dose: 0.5 mg Ceftriaxone Sodium (Rocephin) 1 gm IVPUSH DAILY [facility] Diclofenac Sodium (Voltaren 1% Gel) 2 gm TOP BID [facility] Last Admin: 12/31/18 09:03 Dose: Not Given Enoxaparin Sodium (Lovenox) 40 mg SUBCUT Q24H [facility] Fluticasone Propionate (Flonase) 0 gm NASBOTH DAILY [facility] Last Admin: 12/31/18 07:38 Dose: 1 spray Furosemide (Lasix) 40 mg PO DAILY [facility] Last Admin: 12/31/18 07:38 Dose: 40 mg Guaifenesin (Mucinex) 600 mg PO BID [facility] Last Admin: 12/31/18 07:43 Dose: 600 mg Hydrocortisone (Hydrocortisone 2.5% Crm) 0 gm TOP BID [facility] Last Admin: 12/31/18 07:43 Dose: Hydromorphone HCl (Dilaudid) 0.5 mg IVPUSH Q2H PRN PRN Reason: Pain (severe 7-10) Potassium Chloride/Dextrose/Sod Cl (D5 1/2 Ns W/ 20 Meq/L Kcl) 1,000 mls @ 125 mls/hr IV ASDIRECTED [facility] Magnesium Sulfate 2 gm/ Premix 50 mls @ 25 mls/hr IV ONETIME ONE Stop: 12/31/18 16:27 Ipratropium [place] (Atrovent) 0.5 mg NEB QID [facility] Last Admin: 12/31/18 11:32 Dose: 0.5 mg Admin: 12/31/18 07:38 Dose: 0.5 mg Lisinopril (Prinivil) 10 mg PO DAILY [facility] Last Admin: 12/31/18 07:38 Dose: 10 mg Methylprednisolone Sodium Succinate (Solu-Medrol) 40 mg IVPUSH Q12H [facility] Non-Formulary Medication (Albuterol) 2 puff INH Q4H PRN PRN Reason: Shortness of Breath Imprimis Ophthalmic (SolutionOwn Med) 1 drop EYERT QID [facility] Stop: 01/04/19 21:00 Last Admin: 12/31/18 11:33 Dose: 1 drop Admin: 12/31/18 07:42 Dose: 1 drop Imprimis Ophthalmic (SolutionOwn Med) 1 drop EYERT TID [facility] Stop: 01/11/19 21:00 Imprimis Ophthalmic (SolutionOwn Med) 1 drop EYERT BID [facility] Stop: 01/18/19 21:00 Imprimis Ophthalmic (SolutionOwn Med) 1 drop EYERT DAILY [facility] Stop: 01/25/19 21:00 Ondansetron HCl (Zofran Odt) 4 mg PO Q4H PRN PRN Reason: nausea, able to take PO Silver Sulfadiazine (Silvadene 1% Cream 50 Gm) 0 gm TOP BID [facility] Last Admin: 12/31/18 07:43 Dose: Sodium Chloride (Saline Flush) 10 ml FLUSH ASDIRECTED PRN PRN Reason: Keep Vein Open Temazepam (Restoril) 15 mg PO BEDTIME PRN PRN Reason: Sleep Triamcinolone Acetonide (Triamcinolone Acetonide 0.1% Crm) 0 gm TOP BID [facility] Last Admin: 12/31/18 07:43 Dose:
--- NOTE | 2018-12-31 15:56 | PCM.SN ---
- Free Text/Narrative Note: Contacted by nurse regarding concerns he may have cellulitis of the left leg. There is dull erythema that is not warm or tender to touch. This is consistent with his known stasis dermatitis and does not appear worse than usual right now. Will continue creams and reassess for cellulitis if worsening. Patient is more alert this afternoon and states he is feeling much better. Has generally needed 24 hours of BiPap before weaning; therefore, this will be continued until tomorrow am and then we can try to wean. Lovenox d/c'd as per telepharmacy given low platelets. Will hold off on any other VTE prophylaxis until lab results available tomorrow am.
[2018-12-31] MEDS: methylPREDNISolone Sodium Succinate 40 MG/1 ML SDV IVPUSH SCH (16:23)
[2018-12-31] MEDS: Acetaminophen 325 MG Tab PO PRN (16:24)
[2019-01-01] MEDS: methylPREDNISolone Sodium Succinate 40 MG/1 ML SDV IVPUSH SCH (01:50)
[2019-01-01] MEDS: Sodium Chloride 0.9% 10 ML Syringe FLUSH PRN ×2 (01:50→01:53)
[2019-01-01] MEDS ORDERED: cefTRIAXone 1 GM Vial IVPUSH SCH (02:00)
[2019-01-01] MEDS: Albuterol/Ipratropium 3.0-0.5 MG/3 ML Neb Soln NEB SCH ×4 (05:22→19:17)
[2019-01-01] MEDS ORDERED: Azithromycin 250 MG Tab PO SCH (05:41)
[2019-01-01] MEDS: Arformoterol 15 MCG/2 ML Neb Soln INH SCH ×2 (06:48→19:25)
[2019-01-01] MEDS: Budesonide 0.5 MG/2 ML Neb Susp NEB SCH ×2 (06:48→19:24)
[2019-01-01 07:24] LABS: CHLORIDE,CL 99 mmol/L (98-107); SODIUM,NA 143 mmol/L (136-145)
[2019-01-01 07:25] LABS: ANION GAP 6.5 mmol/L (10-20)
[2019-01-01] MEDS: guaiFENesin 600 MG Tab.ER PO SCH ×2 (07:39→19:22)
[2019-01-01] MEDS: Furosemide 40 MG Tab PO SCH (07:39)
[2019-01-01] MEDS: Lisinopril 10 MG Tab PO SCH (07:39)
[2019-01-01] MEDS: Fluticasone Propionate Nasal Spray 16 GM Bottle NASBOTH SCH (07:39)
[2019-01-01] MEDS: IMPRIMIS EYERT SCH ×4 (07:39→19:24)
[2019-01-01] MEDS: Triamcinolone Acetonide 0.1% Crm 15 GM Tube TOP SCH ×2 (07:42→19:26)
[2019-01-01] MEDS: Diclofenac Sodium 1% Gel 100 GM Tube TOP SCH ×2 (07:43→19:27)
--- NOTE | 2019-01-01 09:35 | PCM.PN ---
- General Info Date of Service: 01/01/19 Subjective Update: 83 yo male hospital day #2 admitted for respiratory failure secondary to COPD exacerbation. He reports he is feeling much better this morning. He has been weaned from BiPap to nasal cannula. He still has some shortness of breath about baseline but this is much better than previous. He is not really coughing. He denies any chest pain. He is still sleepy but feels this is somewhat improved from prior. He denies any fever. His brother had mentioned to nursing staff yesterday that he is concerned about how the patient is taking his medications. The patient's brother has seen his pills scattered throughout his home and in different containers. He is not sure he is always remembering to take these how he is supposed to. He is hoping the patient can be set up with some home health before discharge. - Review of Systems General: Reports: No Symptoms HEENT: Reports: No Symptoms Pulmonary: Reports: Shortness of Breath. Denies: Cough Cardiovascular: Reports: No Symptoms Gastrointestinal: Reports: No Symptoms Genitourinary: Reports: No Symptoms Musculoskeletal: Reports: No Symptoms Skin: Reports: No Symptoms Neurological: Reports: No Symptoms - Patient Data Vitals - Most Recent: Last Vital Signs Temp 36.6 C 01/01/19 09:13 Pulse 80 01/01/19 05:23 Resp 22 H 01/01/19 09:13 BP 128/73 01/01/19 09:13 Pulse Ox 97 01/01/19 09:13 Weight - Most Recent: 112.037 kg I&O - Last 24 Hours: Intake & Output 12/31/18 01/01/19 01/01/19 22:59 06:59 14:59 Intake Total 706 761 240 Output Total 650 500 300 Balance 56 261 -60 Lab Results Last 24 Hours: Laboratory Results - last 24 hr 01/01/19 01/01/19 01/01/19 Range/Units 06:30 06:30 07:12 WBC 4.0 (4.0-10.0) x10^3/uL RBC 4.26 L (4.5-6.0) x10^6/uL Hgb 14.6 (14.0-18.0) g/dL Hct 45.1 (40.0-52.0) % MCV 105.9 H D (78.0-93.0) fL MCH 34.3 H (26.0-32.0) pg MCHC 32.4 (32.0-36.0) g/dL RDW Coeff of Honey 12.8 (10.0-15.0) % Plt Count 93 L (130-400) x10^3/uL POC VBG pH 7.32 (7.31-7.41) POC VBG pCO2 75 H (41-51) POC VBG pO2 66 POC VBG HCO3 39 H (23-28) POC VBG Total CO2 41 H (24-29) POC VBG Base Excess 13 H ((-2) - 3) POC FiO2 0.45 Sodium 143 (136-145) mmol/L Potassium 3.5 (3.5-5.1) mmol/L Chloride 99 (98-107) mmol/L Carbon Dioxide 41 H (21-32) mmol/L Anion Gap 6.5 L (10-20) mmol/L BUN 15 (7-18) mg/dL Creatinine 0.7 (0.70-1.30) mg/dL Est Cr Clr Drug Dosing 72.13 mL/min Estimated GFR (MDRD) > 60 Glucose 128 H (74-106) mg/dL Calcium 9.0 (8.5-10.1) mg/dL Magnesium 1.9 (1.8-2.4) mg/dL Med Orders - Current: Current Medications Acetaminophen (Tylenol) 650 mg PO Q4H PRN PRN Reason: Pain (Mild 1-3)/fever Last Admin: 12/31/18 16:24 Dose: 650 mg Albuterol (Proventil Neb Soln) 2.5 mg NEB Q2H PRN PRN Reason: Dyspnea Last Admin: 12/31/18 07:38 Dose: 2.5 mg Albuterol/Ipratropium (Duoneb 3.0-0.5 Mg/3 Ml) 3 ml NEB Q6H [facility] Last Admin: 01/01/19 05:22 Dose: 3 ml Arformoterol Tartrate (Brovana) 15 mcg INH BIDRT [facility] Last Admin: 01/01/19 06:48 Dose: 15 mcg Azithromycin (Zithromax) 250 mg PO MOWEFR [facility] Last Admin: 01/01/19 05:22 Dose: 250 mg Budesonide (Pulmicort) 0.5 mg NEB BIDRT [facility] Last Admin: 01/01/19 06:48 Dose: 0.5 mg Diclofenac Sodium (Voltaren 1% Gel) 2 gm TOP BID [facility] Last Admin: 01/01/19 07:43 Dose: 1 applic Doxycycline Hyclate (Vibramycin) 100 mg PO BID [facility] Fluticasone Propionate (Flonase) 0 gm NASBOTH DAILY [facility] Last Admin: 01/01/19 07:39 Dose: 1 spray Furosemide (Lasix) 40 mg PO DAILY [facility] Last Admin: 01/01/19 07:39 Dose: 40 mg Guaifenesin (Mucinex) 600 mg PO BID [facility] Last Admin: 01/01/19 07:39 Dose: 600 mg Lisinopril (Prinivil) 10 mg PO DAILY [facility] Last Admin: 01/01/19 07:39 Dose: 10 mg Imprimis Ophthalmic (SolutionOwn Med) 1 drop EYERT QID [facility] Stop: 01/04/19 21:00 Last Admin: 01/01/19 07:39 Dose: 1 drop Imprimis Ophthalmic (SolutionOwn Med) 1 drop EYERT TID [facility] Stop: 01/11/19 21:00 Imprimis Ophthalmic (SolutionOwn Med) 1 drop EYERT BID [facility] Stop: 01/18/19 21:00 Imprimis Ophthalmic (SolutionOwn Med) 1 drop EYERT DAILY [facility] Stop: 01/25/19 21:00 Prednisone (Prednisone) 40 mg PO WITHBREAKFAST [facility] Senna/Docusate Sodium (Senna Plus) 1 tab PO BEDTIME PRN PRN Reason: Constipation Last Admin: 12/31/18 22:48 Dose: 1 tab Senna/Docusate Sodium (Senna Plus) 1 tab PO BEDTIME PRN PRN Reason: Constipation Last Admin: 01/01/19 09:07 Dose: 1 tab Sodium Chloride (Saline Flush) 10 ml FLUSH ASDIRECTED PRN PRN Reason: Keep Vein Open Last Admin: 01/01/19 01:53 Dose: 10 ml Triamcinolone Acetonide (Triamcinolone Acetonide 0.1% Crm) 0 gm TOP BID [facility] Last Admin: 01/01/19 07:42 Dose: 1 applic Discontinued Medications Acetaminophen (Tylenol Extra Strength) 500 mg PO ONETIME ONE Stop: 12/31/18 01:28 Last Admin: 12/31/18 01:31 Dose: 500 mg Acetaminophen (Tylenol) 650 mg PO Q6H PRN PRN Reason: Pain (mild 1-3) Hydrocodone Bitart/Acetaminophen ([place] 325-5 Mg) 1 tab PO Q4H PRN PRN Reason: Pain (moderate 4-6) Albuterol (Proventil Neb Soln) 2.5 mg NEB DAILY PRN PRN Reason: Shortness of Breath Ceftriaxone Sodium (Rocephin) 2 gm IVPUSH STAT ONE Stop: 12/31/18 02:08 Last Admin: 12/31/18 02:18 Dose: 2 gm Ceftriaxone Sodium (Rocephin) 1 gm IVPUSH Q24H [facility] Last Admin: 01/01/19 01:53 Dose: 1 gm Enoxaparin Sodium (Lovenox) 40 mg SUBCUT Q24H [facility] Last Admin: 12/31/18 16:34 Dose: Not Given Hydrocortisone (Hydrocortisone 2.5% Crm) 0 gm TOP BID [facility] Last Admin: 12/31/18 07:43 Dose: Not Given Hydromorphone HCl (Dilaudid) 0.5 mg IVPUSH Q2H PRN PRN Reason: Pain (severe 7-10) Potassium Chloride/Dextrose/Sod Cl (D5 1/2 Ns W/ 20 Meq/L Kcl) 1,000 mls @ 125 mls/hr IV ASDIRECTED [facility] Last Admin: 12/31/18 16:22 Dose: 125 mls/hr Magnesium Sulfate 2 gm/ Premix 50 mls @ 25 mls/hr IV ONETIME ONE Stop: 12/31/18 16:27 Last Admin: 12/31/18 16:22 Dose: 25 mls/hr Ipratropium [place] (Atrovent) 0.5 mg NEB QID [facility] Last Admin: 12/31/18 16:23 Dose: 0.5 mg Methylprednisolone Sodium Succinate (Solu-Medrol) 40 mg IVPUSH ONETIME ONE Stop: 12/31/18 00:53 Last Admin: 12/31/18 01:25 Dose: 40 mg Methylprednisolone Sodium Succinate (Solu-Medrol) 40 mg IVPUSH Q12H [facility] Last Admin: 01/01/19 01:50 Dose: 40 mg Non-Formulary Medication (Albuterol) 2 puff INH Q4H PRN PRN Reason: Shortness of Breath Ondansetron HCl (Zofran Odt) 4 mg PO Q4H PRN PRN Reason: nausea, able to take PO Silver Sulfadiazine (Silvadene 1% Cream 50 Gm) 0 gm TOP BID [facility] Last Admin: 12/31/18 07:43 Dose: Not Given Temazepam (Restoril) 15 mg PO BEDTIME PRN PRN Reason: Sleep - Exam General: Alert, Cooperative, No Acute Distress HEENT: Mucous Membr. Moist/[place] Neck: Supple, Trachea Midline, No Thyromegaly. No: Lymphadenopathy Lungs: Clear to Auscultation, Normal Respiratory Effort Cardiovascular: Regular Rate, Regular Rhythm, No Murmurs GI/Abdominal Exam: Normal Bowel Sounds, Soft, Non-Tender, No Organomegaly, No Distention, No Mass Extremities: Non-Tender, No Pedal Edema, Normal Capillary Refill Peripheral Pulses: 2+: Radial (L), Radial (R) Skin: Warm, Dry, Intact Neurological: No New Focal Deficit - Problem List & Annotations (1) CO2 narcosis SNOMED Code(s): 78718694 Code(s): R06.89 - OTHER ABNORMALITIES OF BREATHING Status: Acute Current Visit: No (2) Respiratory failure with hypoxia and hypercapnia SNOMED Code(s): 02621892 Code(s): J96.91 - RESPIRATORY FAILURE, UNSPECIFIED WITH HYPOXIA; J96.92 - RESPIRATORY FAILURE, UNSPECIFIED WITH HYPERCAPNIA Status: Acute Current Visit: No Qualifiers: Chronicity: acute on chronic Qualified Code(s): J96.21 - Acute and chronic respiratory failure with hypoxia; J96.22 - Acute and chronic respiratory failure with hypercapnia (3) COPD exacerbation SNOMED Code(s): 302377899 Code(s): J44.1 - CHRONIC OBSTRUCTIVE PULMONARY DISEASE W (ACUTE) EXACERBATION Status: Acute Current Visit: No (4) Constipation SNOMED Code(s): 88579088 Code(s): K59.00 - CONSTIPATION, UNSPECIFIED Status: Chronic Current Visit : No Qualifiers: Constipation type: unspecified constipation type Qualified Code(s): K59.00 - Constipation, unspecified (5) Diastolic CHF SNOMED Code(s): 204293655, 241754147 Code(s): I50.30 - UNSPECIFIED DIASTOLIC (CONGESTIVE) HEART FAILURE Status: Chronic Current Visit: No Qualifiers: Heart failure chronicity: chronic Qualified Code(s): I50.32 - Chronic diastolic (congestive) heart failure (6) Essential hypertension SNOMED Code(s): 30540655 Code(s): I10 - ESSENTIAL (PRIMARY) HYPERTENSION Status: Chronic Priority : High Current Visit: No (7) GERD (gastroesophageal reflux disease) SNOMED Code(s): 087235177 Code(s): K21.9 - GASTRO-ESOPHAGEAL REFLUX DISEASE WITHOUT ESOPHAGITIS Status: Chronic Priority: Medium Current Visit: No Qualifiers: Esophagitis presence: without esophagitis Qualified Code(s): K21.9 - Gastro -esophageal reflux disease without esophagitis (8) Hyperlipidemia SNOMED Code(s): 54411309 Code(s): E78.5 - HYPERLIPIDEMIA, UNSPECIFIED Status: Chronic Priority: Low Current Visit: No Qualifiers: Hyperlipidemia type: pure hypercholesterolemia Qualified Code(s): E78.00 - Pure hypercholesterolemia, unspecified; E78.0 - Pure hypercholesterolemia (9) Obesity SNOMED Code(s): 895279064, 515156922 Code(s): E66.9 - OBESITY, UNSPECIFIED Status: Chronic Priority: Medium Current Visit: No Qualifiers: Obesity type: unspecified obesity type - Problem List Review Problem List Initiated/Reviewed/Updated: Yes - My Orders Last 24 Hours: My Active Orders 12/31/18 22:38 Docusate Sodium/Sennosides [Senna Plus] 1 tab PO BEDTIME PRN 01/01/19 08:20 Docusate Sodium/Sennosides [Senna Plus] 1 tab PO BEDTIME PRN 01/01/19 09:21 predniSONE 40 mg PO WITHBREAKFAST 01/01/19 09:30 Doxycycline [Vibramycin] 100 mg PO BID - Assessment Assessment:: 83 yo male admitted with acute on chronic hypoxic and hypercapnic respiratory failure secondary to COPD exacerbation. Is doing much better this morning. Has been weaned from BiPap to nasal cannula. - Plan Plan:: #1 CO2 narcosis #2 Acute on chronic respiratory failure with hypoxia and hypercapnea #3 COPD exacerbation - Patient is much more alert today. - VBG reviewed. Cannot be directly compared to results from admission as that was an ABG. CO2 is not much different but is improved somewhat. - Will continue to wean oxygen as able. - Will transition from IV solu-medrol to PO prednisone today. - Will also transition to PO doxycycline as well. - Plan to complete a 5 day course of both. - Lisa is working on getting a home vent for him. - Patient is agreeable to discussion regarding home health. He is not homebound and will need to pay for this out of pocket but he voices understanding of this. #4 Constipation - Stool softeners ordered per his request. 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 - Home medications continued. Patient will remain on acute status today - if he continues to improve as he has been and as he has with previous hospitalizations, he will likely be prepared for dismissal home tomorrow. Will work on getting home health arranged for him prior to dismissal. He will need close follow-up given his tenuous status with the severity of his COPD. Will transition to all PO medications today. Holding off on pharmacologic VTE prophylaxis given thrombocytopenia - will encourage ambulation today. Code status is DNR/DNI. Patient will be signed out to telephone clerk telegraph office provider Dr. Lee for the weekend.
[2019-01-01] MEDS: Doxycycline 100 MG Cap PO SCH ×2 (10:14→19:21)
[2019-01-01] MEDS: predniSONE 20 MG Tab PO SCH (10:14)
[2019-01-01] MEDS: Acetaminophen 325 MG Tab PO PRN (19:22)
[2019-01-01] MEDS ORDERED: Sodium Chloride 0.65% Nasal Spray 45 ML Bottle NAS PRN (22:27)
[2019-01-02] MEDS: Diclofenac Sodium 1% Gel 100 GM Tube TOP SCH ×3 (00:33→21:14)
[2019-01-02] MEDS: Albuterol/Ipratropium 3.0-0.5 MG/3 ML Neb Soln NEB SCH ×4 (00:35→18:13)
[2019-01-02] MEDS: Acetaminophen 325 MG Tab PO PRN ×2 (03:15→21:12)
[2019-01-02] MEDS: Albuterol 0.083% 2.5 MG/3 ML Neb Soln NEB PRN (04:52)
[2019-01-02] MEDS: Arformoterol 15 MCG/2 ML Neb Soln INH SCH ×2 (06:59→21:12)
[2019-01-02] MEDS: Budesonide 0.5 MG/2 ML Neb Susp NEB SCH ×2 (06:59→21:12)
[2019-01-02] MEDS: IMPRIMIS EYERT SCH ×4 (07:44→21:13)
[2019-01-02] MEDS: Fluticasone Propionate Nasal Spray 16 GM Bottle NASBOTH SCH (07:44)
[2019-01-02] MEDS: predniSONE 20 MG Tab PO SCH (07:48)
[2019-01-02] MEDS: Furosemide 40 MG Tab PO SCH (07:49)
[2019-01-02] MEDS: Doxycycline 100 MG Cap PO SCH ×2 (07:49→21:12)
[2019-01-02] MEDS: guaiFENesin 600 MG Tab.ER PO SCH ×2 (07:49→21:13)
[2019-01-02] MEDS: Lisinopril 10 MG Tab PO SCH (07:49)
[2019-01-02] MEDS ORDERED: Magnesium Hydroxide 400 MG/5 ML Susp 30 ML Cup PO PRN (08:12)
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
[2019-01-02] MEDS: Triamcinolone Acetonide 0.1% Crm 15 GM Tube TOP SCH ×2 (11:35→21:14)
--- NOTE | 2019-01-02 17:09 | CR ---
[id number] RAD/RAD Chest Portable EXAM: PORTABLE CHEST RADIOGRAPH. INDICATION: COPD COMPARISON: CORRELATION IS MADE WITH THE EXAM OF DECEMBER 31, 2018. FINDINGS: Bibasilar discoid atelectasis remains the same. The lungs otherwise are clear. The cardiomediastinal contour is stable. IMPRESSION: NO CHANGE SINCE LAST EXAM. Homer Rosales MD 01/02/19 3117 Thank you for allowing us to participate in the care of your patient.
[2019-01-03] MEDS: Acetaminophen 325 MG Tab PO PRN (01:37)
[2019-01-03] MEDS: Albuterol/Ipratropium 3.0-0.5 MG/3 ML Neb Soln NEB SCH ×3 (01:37→12:05)
[2019-01-03] MEDS: Budesonide 0.5 MG/2 ML Neb Susp NEB SCH (06:50)
[2019-01-03] MEDS: Arformoterol 15 MCG/2 ML Neb Soln INH SCH (06:50)
[2019-01-03] MEDS: predniSONE 20 MG Tab PO SCH (07:50)
[2019-01-03] MEDS: Fluticasone Propionate Nasal Spray 16 GM Bottle NASBOTH SCH (07:51)
[2019-01-03] MEDS: Diclofenac Sodium 1% Gel 100 GM Tube TOP SCH (07:51)
[2019-01-03] MEDS: IMPRIMIS EYERT SCH ×2 (07:51→11:28)
[2019-01-03] MEDS: Furosemide 40 MG Tab PO SCH (07:51)
[2019-01-03] MEDS: guaiFENesin 600 MG Tab.ER PO SCH (07:51)
[2019-01-03] MEDS: Lisinopril 10 MG Tab PO SCH (07:52)
[2019-01-03] MEDS: Triamcinolone Acetonide 0.1% Crm 15 GM Tube TOP SCH (07:54)
[2019-01-03] MEDS: Doxycycline 100 MG Cap PO SCH (07:54)
[2019-01-03 09:05] LABS: CHLORIDE,CL 98 mmol/L (98-107); SODIUM,NA 141 mmol/L (136-145)
[2019-01-03 09:07] LABS: ANION GAP 3.4 mmol/L (10-20)
[2019-01-03] MEDS ORDERED: Potassium Chloride 10 MEQ Tab.ER PO SCH (10:15)
[2019-01-03 10:53] VITALS: BP 153/81
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
[2019-01-05] MEDS ORDERED: IMPRIMIS EYERT SCH (08:00)
[2019-01-12] MEDS ORDERED: IMPRIMIS EYERT SCH (08:00)
[2019-01-19] MEDS ORDERED: IMPRIMIS EYERT SCH (08:00)
== END 2019-01-03 12:30 | disposition home or self-care (01) | DRG 189 ==
LOC: VM.ED 00:30 → VM.MS 02:00
PROVIDERS: ADMIT Family Medicine; ATTEND Family Medicine
PROC: 5A09357 Assistance with Respiratory Ventilation, Less than 24 Consecutive Hours, Continuous Positive Airway Pressure (ICD-10-PCS; principal; 2018-12-31)
DX: J96.21 Acute and chronic respiratory failure with hypoxia (principal); J44.1 Chronic obstructive pulmonary disease with (acute) exacerbation; J98.11 Atelectasis; E66.2 Morbid (severe) obesity with alveolar hypoventilation; E87.0 Hyperosmolality and hypernatremia; I50.32 Chronic diastolic (congestive) heart failure; Z66 Do not resuscitate; K59.00 Constipation, unspecified; E87.6 Hypokalemia; Z99.81 Dependence on supplemental oxygen; E78.5 Hyperlipidemia, unspecified; J30.9 Allergic rhinitis, unspecified; I11.0 Hypertensive heart disease with heart failure; K21.9 Gastro-esophageal reflux disease without esophagitis; M19.90 Unspecified osteoarthritis, unspecified site; J96.22 Acute and chronic respiratory failure with hypercapnia; I87.2 Venous insufficiency (chronic) (peripheral); Z87.891 Personal history of nicotine dependence; Z98.49 Cataract extraction status, unspecified eye; Z68.37 Body mass index [BMI] 37.0-37.9, adult
CPT/HCPCS: 36415; 36600; 71045; 80048; 80053; 81001; 82803; 83605; 83735; 83880; 84443; 84484; 85025; 85027; 86140; 94640; 94660; 94760; 96374; 96375; 99284-GF; 99285-25; A9270-GY; J0696; J2920; J3475; J3480; J7613-GY; J7620-GY

== ENCOUNTER 2019-09-07 10:39 | Emergency (ER) | payer OTHER, MEDICARE ==
[2019-09-07] MEDS ORDERED: Sodium Chloride 0.9% 10 ML Syringe FLUSH PRN (10:50)
[2019-09-07] MEDS ORDERED: Furosemide 40 MG/4 ML VIAL IVPUSH ONE (10:50)
[2019-09-07] MEDS ORDERED: Albuterol/Ipratropium 3.0-0.5 MG/3 ML Neb Soln NEB ONE (11:06)
[2019-09-07] MEDS ORDERED: methylPREDNISolone Sodium Succinate 125 MG/2 ML SDV IVPUSH ONE (11:06)
--- NOTE | 2019-09-07 11:08 | EDM.PDOC ---
ED HPI GENERAL MEDICAL PROBLEM - General Stated Complaint: SOB Time Seen by Provider: 09/07/19 10:45 Source of Information: Reports: Patient, Provider - History of Present Illness INITIAL COMMENTS - FREE TEXT/NARRATIVE: "Baldo" is an 84 y/o male who presents to the ER after he was seen in the [facility] by Dr Lee. He was there for suture removal, but during the visit he was very drowsy and his sats were in the 60-70s. He has a long history of COPD and has previously been in respiratory failure. His last admission to the hospital was in December 2018 and he required biPap during that admission. - Related Data Allergies Allergy/AdvReac Type Severity Reaction Status Date / Time No Known Allergies Allergy Verified 09/07/19 11:41 Home Meds: Home Meds Albuterol [Ventolin HFA] 2 puff INH Q4H PRN 12/20/14 [History] Budesonide [Pulmicort] 0.5 mg NEB BIDRT 11/21/16 [History] Formoterol [Perforomist] 20 mcg NEB BIDRT 11/21/16 [History] Furosemide 40 mg PO DAILY 04/17/18 [History] Azithromycin [Zithromax] 250 mg PO MOWEFR 10/26/18 [History] Lisinopril 10 mg PO DAILY 10/26/18 [History] Triamcinolone Acetonide [Kenalog 0.1% Crm] 1 dose TOP BID 10/26/18 [History] guaiFENesin [Mucinex] 600 mg PO BID 10/26/18 [History] Albuterol [Proventil Neb Soln] 2.5 mg NEB DAILY PRN 12/31/18 [History] Diclofenac Sodium [Voltaren 1% Gel] 2 gm TOP BID 12/31/18 [History] Fluticasone Propionate [Flonase] 50 mcg NS DAILY 12/31/18 [History] Hydrocortisone [Anusol-HC] 1 gm TP BID 12/31/18 [History] Ipratropium [Atrovent] 0.5 mg NEB QID 12/31/18 [History] Acetaminophen [Acetaminophen Extra Strength] 1,000 mg PO Q6H PRN 06/14/19 [ History] Bisacodyl [Correctol] 5 mg PO DAILY PRN 06/14/19 [History] Carboxymethylcellulose Sodium [Refresh Tears] 1 drop EYELF Q2H PRN 06/14/19 [ History] Cholecalciferol (Vitamin D3) [Vitamin D3] 2,000 unit PO DAILY 06/14/19 [History] Cinnamon Bark [Cinnamon] 1,000 mg PO DAILY 06/14/19 [History] Cyanocobalamin (Vitamin B-12) [Vitamin B-12] 2,000 mcg PO DAILY 06/14/19 [ History] Ferrous Sulfate 325 mg PO DAILY 06/14/19 [History] Fish Oil/Borage/Flax/Om3,6,9#1 [Denbo 3-6-9 1,200 mg Softgel] 1,200 mg PO DAILY 06/14/19 [History] Fluorometholone [Fluorometholone 0.1% Ophth Susp] 1 drop EYEBOTH BID 06/14/19 [ History] Gabapentin [Neurontin] 200 mg PO TID 06/14/19 [History] Multivitamin [Multi-Vitamin Daily] 1 each PO DAILY 06/14/19 [History] Ondansetron [Zofran] 4 mg PO Q6H PRN 06/14/19 [History] Revefenacin [Yupelri] 1 vial PO DAILY 06/14/19 [History] Sennosides [Senna] 2 - 4 tab PO BEDTIME PRN 06/14/19 [History] Triamcinolone Acetonide [Nasacort] 2 sprays NS DAILY 06/14/19 [History] Turmeric/Turmeric Root Extract [Turmeric 500 mg Capsule] 500 mg PO DAILY [History] prednisoLONE acetate [Pred Forte 1% Ophth Susp] 5 ml EYERT QID 06/14/19 [History ] amLODIPine [Norvasc] 2.5 mg PO DAILY 07/26/19 [History] Past Medical History HEENT History: Reports: Allergic Rhinitis, Cataract, Impaired Vision Cardiovascular History: Reports: Heart Failure, High Cholesterol, Hypertension, SOB on Exertion Respiratory History: Reports: Asthma, COPD, Sleep Apnea Other Respiratory History: respiratory acidosis, respiratory failure, hypercapnia Gastrointestinal History: Reports: Chronic Constipation, GERD Other Gastrointestinal History: henia Genitourinary History: Reports: None Musculoskeletal History: Reports: Osteoarthritis, Other (See Below) Other Musculoskeletal History: paget disease. cervicalgia Neurological History: Reports: None Psychiatric History: Reports: None Other Endocrine/Metabolic History: hyperlipidemia Hematologic History: Reports: None Immunologic History: Reports: None Oncologic (Cancer) History: Reports: None Dermatologic History: Reports: Other (See Below) Other Dermatologic History: lipoma of back - Infectious Disease History Infectious Disease History: Reports: Chicken Pox - Past Surgical History Head Surgeries/Procedures: Reports: None HEENT Surgical History: Reports: Cataract Surgery Cardiovascular Surgical History: Reports: None Respiratory Surgical History: Reports: None GI Surgical History: Reports: Hernia Repair/Other, Other (See Below) Other GI Surgeries/Procedures: ventral hernia. lap hernia repair Male Surgical History: Reports: None Endocrine Surgical History: Reports: None Neurological Surgical History: Reports: None Social & Family History - Family History Family Medical History: Noncontributory Cardiac: Reports: [place] Respiratory: Reports: Asthma : Reports: Other (See Below) Other Family History: Prostrate problems Musculoskeletal: Reports: Arthritis, Gout, Other (See Below) Other Musculoskeletal Family History: Brother with polio Neurological: Reports: Neuropathy, Diabetic Endocrine/Metabolic: Reports: Diabetes, type II - Caffeine Use Caffeine Use: Reports: Coffee - Living Situation & Occupation Living situation: Reports: Single, Alone Occupation: Retired Review of Systems - Review of Systems Review Of Systems: See Below ED EXAM, GENERAL - Physical Exam Exam: See Below Exam Limited By: Respiratory Distress General Appearance: Alert, WD/WN, Moderate Distress Ears: Normal External Exam, Normal Canal, Hearing Grossly Normal, Normal TMs Nose: Normal Inspection Throat/Mouth: Normal Inspection, Normal Lips, Other (Poor dentitian) Head: Atraumatic, Normocephalic Neck: Supple Respiratory/Chest: Respiratory Distress, Decreased Breath Sounds, Prolonged Expiration Cardiovascular: Regular Rate, Rhythm, Other (2+ pitting edema to bilateral lower legs) GI/Abdominal: Normal Bowel Sounds, Soft (Male) Exam: Deferred Rectal (Males) Exam: Deferred Back Exam: Normal Inspection Extremities: Normal Capillary Refill, Pedal Edema Neurological: Alert, Oriented, CN II-XII Intact, Slow to Respond Psychiatric: Normal Affect Skin Exam: Warm, Dry, Intact, Erythema Lymphatic: No Adenopathy EKG INTERPRETATION EKG Date: 09/07/19 Time: 10:45 Rhythm: NSR Rate (Beats/Min): 85 [place]: LAD-Left [place] Deviation P-Wave: Present Comparison: No Change (09/2018 EKG Comparison) EKG Interpretation Comments: Sinus Rhythm Course - Vital Signs Text/Narrative:: The patient was seen by the MASTER RIGGER. Labs, CXR, and EKG were ordered. Duoneb, Lasix 40mg IVP, and Solumedrol 125mg IVP were ordered. Sats in the upper 60s on oxygen 3 liters/nc. 1120 Bipap requested. RT paged. 1155 Labs reviewed, some pending yet. CXR reviewed and shows decreased lung volume, R>L. 1210 [facility] contacted and Dr Quintana accepted the patient for transport to [facility] to [facility] ICU. 1215 Discussed transfer with patient and he agrees to go. Plan ALS transfer. Patient remained stable on BiPap until he left the ER with [facility]. - Orders/Labs/Meds Orders: Active Orders 24 hr Category Date Time Status EKG Documentation Completion [RC] STAT Care 09/07/19 10:53 Active Intake and Output [RC] ASDIRECTED Care 09/07/19 10:50 Active Oxygen Therapy [RC] PRN Care 09/07/19 10:50 Active Pulse Oximetry [RC] CONTINUOUS Care 09/07/19 10:50 Active RT Aerosol Therapy [RC] ASDIRECTED Care 09/07/19 11:06 Active RT BiPAP/CPAP [RC] ASDIRECTED Care 09/07/19 10:50 Active BLOOD GAS ARTERIAL [BG] Stat Lab 09/07/19 10:57 Ordered CBC WITH AUTO DIFF [HEME] Stat Lab 09/07/19 10:55 Received COMPREHENSIVE METABOLIC PN,CMP [CHEM] Stat Lab 09/07/19 10:55 Received CULTURE BLOOD [BC] Stat Lab 09/07/19 11:11 Received CULTURE BLOOD [BC] Stat Lab 09/07/19 11:15 Received D-DIMER QUANTITATIVE [COAG] Stat Lab 09/07/19 10:55 Received INR,PT,PROTHROMBIN TIME [COAG] Stat Lab 09/07/19 10:55 Received MAGNESIUM [CHEM] Stat Lab 09/07/19 10:55 Received PRO B-TYPE NATRIUR PEPT,BNPPRO [CHEM] Stat Lab 09/07/19 10:55 Received PTT,PARTIAL THROMBOPLSTIN TIME [COAG] Stat Lab 09/07/19 10:55 Received TROPONIN I [CHEM] Stat Lab 09/07/19 10:55 Received Sodium Chloride 0.9% [Saline Flush] Med 09/07/19 10:50 Active 10 ml FLUSH ASDIRECTED PRN Blood Culture x2 Reflex Set [OM.PC] Stat Oth 09/07/19 10:51 Ordered Peripheral IV Insertion Adult [OM.PC] Urgent Oth 09/07/19 10:50 Ordered Saline Lock Insert [OM.PC] Stat Oth 09/07/19 10:50 Ordered Medication Orders Sodium Chloride (Saline Flush) 10 ml FLUSH ASDIRECTED PRN PRN Reason: Keep Vein Open Meds: Medications Generic Name Dose Route Start Last Admin Trade Name Freq PRN Reason Stop Dose Admin Sodium Chloride 10 ml 09/07/19 10:50 Saline Flush FLUSH ASDIRECTED PRN Keep Vein Open Discontinued Medications Generic Name Dose Route Start Last Admin Trade Name Freq PRN Reason Stop Dose Admin Albuterol/Ipratropium 3 ml 09/07/19 11:06 09/07/19 11:16 Duoneb 3.0-0.5 Mg/3 Ml NEB 09/07/19 11:07 3 ml ONETIME ONE Administration Furosemide 40 mg 09/07/19 10:50 09/07/19 11:14 Lasix IVPUSH 09/07/19 10:51 40 mg NOW ONE Administration Methylprednisolone Sodium Succinate 125 mg 09/07/19 11:06 09/07/19 11:16 Solu-Medrol IVPUSH 09/07/19 11:07 125 mg ONETIME ONE Administration - Radiology Interpretation Free Text/Narrative:: No acute findings, decrease lung volume, R>L. Departure - Departure Time of Disposition: 12:26 Disposition: DC/Tfer to [facility] 02 Condition: Fair Clinical Impression: COPD with exacerbation Respiratory failure with hypoxia and hypercapnia Qualifiers: Chronicity: acute on chronic Qualified Code(s): J96.21 - Acute and chronic respiratory failure with hypoxia Diastolic CHF Qualifiers: Heart failure chronicity: chronic Qualified Code(s): I50.32 - Chronic diastolic (congestive) heart failure - Discharge Information *PRESCRIPTION DRUG MONITORING PROGRAM REVIEWED*: Not Applicable *COPY OF PRESCRIPTION DRUG MONITORING REPORT IN PATIENT RUPINDER: Not Applicable Referrals: Radha Lee MD [Physician] - Forms: Interfacility Transfer EMTALA Additional Instructions: -Transfer to [facility] to Dr Quintana via [facility] - My Orders Last 24 Hours: My Active Orders 09/07/19 10:50 Intake and Output [RC] ASDIRECTED Oxygen Therapy [RC] PRN Pulse Oximetry [RC] CONTINUOUS RT BiPAP/CPAP [RC] ASDIRECTED Sodium Chloride 0.9% [Saline Flush] 10 ml FLUSH ASDIRECTED PRN Peripheral IV Insertion Adult [OM.PC] Urgent Saline Lock Insert [OM.PC] Stat 09/07/19 10:51 Blood Culture x2 Reflex Set [OM.PC] Stat 09/07/19 10:53 EKG Documentation Completion [RC] STAT 09/07/19 10:55 CBC WITH AUTO DIFF [HEME] Stat COMPREHENSIVE METABOLIC PN,CMP [CHEM] Stat D-DIMER QUANTITATIVE [COAG] Stat INR,PT,PROTHROMBIN TIME [COAG] Stat MAGNESIUM [CHEM] Stat PRO B-TYPE NATRIUR PEPT,BNPPRO [CHEM] Stat PTT,PARTIAL THROMBOPLSTIN TIME [COAG] Stat TROPONIN I [CHEM] Stat 09/07/19 10:57 BLOOD GAS ARTERIAL [BG] Stat 09/07/19 11:06 RT Aerosol Therapy [RC] ASDIRECTED 09/07/19 11:11 CULTURE BLOOD [BC] Stat 09/07/19 11:15 CULTURE BLOOD [BC] Stat - Assessment/Plan Last 24 Hours: My Active Orders 09/07/19 10:50 Intake and Output [RC] ASDIRECTED Oxygen Therapy [RC] PRN Pulse Oximetry [RC] CONTINUOUS RT BiPAP/CPAP [RC] ASDIRECTED Sodium Chloride 0.9% [Saline Flush] 10 ml FLUSH ASDIRECTED PRN Peripheral IV Insertion Adult [OM.PC] Urgent Saline Lock Insert [OM.PC] Stat 09/07/19 10:51 Blood Culture x2 Reflex Set [OM.PC] Stat 09/07/19 10:53 EKG Documentation Completion [RC] STAT 09/07/19 10:55 CBC WITH AUTO DIFF [HEME] Stat COMPREHENSIVE METABOLIC PN,CMP [CHEM] Stat D-DIMER QUANTITATIVE [COAG] Stat INR,PT,PROTHROMBIN TIME [COAG] Stat MAGNESIUM [CHEM] Stat PRO B-TYPE NATRIUR PEPT,BNPPRO [CHEM] Stat PTT,PARTIAL THROMBOPLSTIN TIME [COAG] Stat TROPONIN I [CHEM] Stat 09/07/19 10:57 BLOOD GAS ARTERIAL [BG] Stat 09/07/19 11:06 RT Aerosol Therapy [RC] ASDIRECTED 09/07/19 11:11 CULTURE BLOOD [BC] Stat 09/07/19 11:15 CULTURE BLOOD [BC] Stat
--- NOTE | 2019-09-07 11:29 | CR ---
[id number] RAD/RAD Chest PA or AP 1V EXAM: SINGLE VIEW CHEST. INDICATION: RESPIRATORY DISEASE COMPARISON: CORRELATION IS MADE WITH THE EXAM OF JANUARY 02, 2019 FINDINGS: Volume loss at the right lung base again is seen. There is mild scarring or discoid atelectasis at the left lung base The cardiomediastinal contour is stable also IMPRESSION: BIBASILAR HYPOVENTILATORY CHANGES NO NEW FINDINGS Homer Rosales MD 09/07/19 1128 Thank you for allowing us to participate in the care of your patient.
[2019-09-07 11:57] LABS: CHLORIDE,CL 100 mmol/L (98-107); SODIUM,NA 146 mmol/L (136-145)
[2019-09-07 11:58] LABS: ANION GAP 4.9 mmol/L (10-20)
[2019-09-07 12:07] VITALS: BP 126/54; PULSE 73
== END 2019-09-07 12:53 | disposition short-term general hospital (02) ==
LOC: VM.ED 10:39
DX: J96.21 Acute and chronic respiratory failure with hypoxia (principal); J44.1 Chronic obstructive pulmonary disease with (acute) exacerbation; I11.0 Hypertensive heart disease with heart failure; I50.32 Chronic diastolic (congestive) heart failure; K21.9 Gastro-esophageal reflux disease without esophagitis; Z79.899 Other long term (current) drug therapy
CPT/HCPCS: 36415; 36600; 71045; 80053; 82803; 83735; 83880; 84484; 85025; 85379; 85610; 85730; 87040; 93005; 93010; 94640; 94660; 96374; 96375; 99284-25; 99284-GF; J1940; J2930; J7620-GY

== ENCOUNTER 2020-02-07 10:56 | Emergency (ER) | payer MEDICARE, OTHER ==
[2020-02-07] MEDS ORDERED: Sodium Chloride 0.9% 1,000 ML IV ONE (10:57)
[2020-02-07] MEDS ORDERED: Sodium Chloride 0.9% 10 ML Syringe FLUSH PRN (11:41)
[2020-02-07] MEDS ORDERED: Rocuronium 50 MG/5 ML Vial ONE ×3 (11:46→12:56)
[2020-02-07 11:50] LABS: ANION GAP -5.4 mmol/L (10-20); CHLORIDE,CL 99 mmol/L (98-107); SODIUM,NA 144 mmol/L (136-145)
[2020-02-07] MEDS: Piperacillin/Tazobactam 4.5 GM in Sodium Chloride 0.9% 100 ML IV ONE (11:53)
[2020-02-07] MEDS ORDERED: fentaNYL 100 MCG/2 ML SDV ONE (12:00)
[2020-02-07] MEDS ORDERED: Etomidate 2 MG/ML 10 ML SDV ONE (12:01)
[2020-02-07] MEDS ORDERED: Succinylcholine 200 MG/10 ML MDV ONE (12:02)
[2020-02-07] MEDS ORDERED: Propofol 200 MG/20 ML SDV ONE (12:02)
--- NOTE | 2020-02-07 12:02 | EDM.PDOC ---
ED HPI GENERAL MEDICAL PROBLEM - General Chief Complaint: Respiratory Problem Time Seen by Provider: 02/07/20 10:56 Source of Information: Reports: Family History Limitations: Reports: No Limitations - History of Present Illness INITIAL COMMENTS - FREE TEXT/NARRATIVE: Pt. presents to ER via private vehicle. Pt. brother relates that the patient has been experiencing increased shortness of breath over the past several days. [place] Pt. brother states that he requested to be brought to the clinic. Brother states that the patient had to be loaded into a car with assistance of neighbors, as they did not want to call an ambulance. Pt. was unresponsive during his entire trip to the clinic. Once he got the the clinic, staff noted that the patient was unresponsive and having agonal breathing and requested that he be transported to ER. On arrival to ER, pt. was completely unresponsive with agonal breathing and cyanotic. He had to be lifted from the car onto a bed. Brother is not aware of any other recent complaints of illnesses. He is not sure if the patient has been febrile or if he has had a cough. Pt. has a history of severe COPD with CO2 retention and chronic respiratory failure. Family was not aware of what his wishes were in terms of wanting resuscitation. Onset Date: 02/06/20 - Related Data Allergies Allergy/AdvReac Type Severity Reaction Status Date / Time No Known Allergies Allergy Verified 09/07/19 11:41 Home Meds: Home Meds Albuterol [Ventolin HFA] 2 puff INH Q4H PRN 12/20/14 [History] Budesonide [Pulmicort] 0.5 mg NEB BIDRT 11/21/16 [History] Formoterol [Perforomist] 20 mcg NEB BIDRT 11/21/16 [History] Furosemide 40 mg PO DAILY 04/17/18 [History] Azithromycin [Zithromax] 250 mg PO MOWEFR 10/26/18 [History] Lisinopril 10 mg PO DAILY 10/26/18 [History] Triamcinolone Acetonide [Kenalog 0.1% Crm] 1 dose TOP BID 10/26/18 [History] guaiFENesin [Mucinex] 600 mg PO BID 10/26/18 [History] Albuterol [Proventil Neb Soln] 2.5 mg NEB DAILY PRN 12/31/18 [History] Diclofenac Sodium [Voltaren 1% Gel] 2 gm TOP BID 12/31/18 [History] Fluticasone Propionate [Flonase] 50 mcg NS DAILY 12/31/18 [History] Hydrocortisone [Anusol-HC] 1 gm TP BID 12/31/18 [History] Ipratropium [Atrovent] 0.5 mg NEB QID 12/31/18 [History] Acetaminophen [Acetaminophen Extra Strength] 1,000 mg PO Q6H PRN 06/14/19 [ History] Carboxymethylcellulose Sodium [Refresh Tears] 1 drop EYELF Q2H PRN 06/14/19 [ History] Cholecalciferol (Vitamin D3) [Vitamin D3] 2,000 unit PO DAILY 06/14/19 [History] Cinnamon Bark [Cinnamon] 1,000 mg PO DAILY 06/14/19 [History] Cyanocobalamin (Vitamin B-12) [Vitamin B-12] 2,000 mcg PO DAILY 06/14/19 [ History] Ferrous Sulfate 325 mg PO DAILY 06/14/19 [History] Fish Oil/Borage/Flax/Om3,6,9 1 [[place] 3-6-9 1,200 mg Softgel] 1,200 mg PO DAILY 06/14/19 [History] Fluorometholone [Fluorometholone 0.1% Ophth Susp] 1 drop EYEBOTH BID 06/14/19 [ History] Gabapentin [Neurontin] 200 mg PO TID 06/14/19 [History] Multivitamin [Multi-Vitamin Daily] 1 each PO DAILY 06/14/19 [History] Ondansetron [Zofran] 4 mg PO Q6H PRN 06/14/19 [History] Revefenacin [Yupelri] 1 vial PO DAILY 06/14/19 [History] Sennosides [Senna] 2 - 4 tab PO BEDTIME PRN 06/14/19 [History] Triamcinolone Acetonide [Nasacort] 2 sprays NS DAILY 06/14/19 [History] Turmeric/Turmeric Root Extract [Turmeric 500 mg Capsule] 500 mg PO DAILY [History] bisacodyL [Correctol] 5 mg PO DAILY PRN 06/14/19 [History] prednisoLONE acetate [Pred Forte 1% Ophth Susp] 1 drop EYERT QID 06/14/19 [ History] amLODIPine [Norvasc] 2.5 mg PO DAILY 07/26/19 [History] Past Medical History HEENT History: Reports: Allergic Rhinitis, Cataract, Impaired Vision Cardiovascular History: Reports: Heart Failure, High Cholesterol, Hypertension, SOB on Exertion Respiratory History: Reports: Asthma, COPD, Sleep Apnea Other Respiratory History: respiratory acidosis, respiratory failure, hypercapnia Gastrointestinal History: Reports: Chronic Constipation, GERD Other Gastrointestinal History: henia Genitourinary History: Reports: None Musculoskeletal History: Reports: Osteoarthritis, Other (See Below) Other Musculoskeletal History: paget disease. cervicalgia Neurological History: Reports: None Psychiatric History: Reports: None Other Endocrine/Metabolic History: hyperlipidemia Hematologic History: Reports: None Immunologic History: Reports: None Oncologic (Cancer) History: Reports: None Dermatologic History: Reports: Other (See Below) Other Dermatologic History: lipoma of back - Infectious Disease History Infectious Disease History: Reports: Chicken Pox - Past Surgical History Head Surgeries/Procedures: Reports: None HEENT Surgical History: Reports: Cataract Surgery Cardiovascular Surgical History: Reports: None Respiratory Surgical History: Reports: None GI Surgical History: Reports: Hernia Repair/Other, Other (See Below) Other GI Surgeries/Procedures: ventral hernia. lap hernia repair Male Surgical History: Reports: None Endocrine Surgical History: Reports: None Neurological Surgical History: Reports: None Social & Family History - Family History Family Medical History: Noncontributory Cardiac: Reports: [place] Respiratory: Reports: Asthma : Reports: Other (See Below) Other Family History: Prostrate problems Musculoskeletal: Reports: Arthritis, Gout, Other (See Below) Other Musculoskeletal Family History: Brother with polio Neurological: Reports: Neuropathy, Diabetic Endocrine/Metabolic: Reports: Diabetes, type II - Caffeine Use Caffeine Use: Reports: Coffee - Living Situation & Occupation Living situation: Reports: Single, Alone Occupation: Retired ED ROS GENERAL - Review of Systems Review Of Systems: Unable To Obtain Reason Not Obtained: unresponsive ED EXAM, GENERAL - Physical Exam Exam: See Below Exam Limited By: No Limitations General Appearance: Obtunded, Other (unresponsive) Eye Exam: Bilateral Eye: PERRL Ears: Normal External Exam Nose: Normal Inspection, Normal Mucosa, No Blood Throat/Mouth: Other (dentures. Airway was filled with vomitus on arrival to ER.) Head: Atraumatic, Normocephalic Neck: Normal Inspection, Supple Respiratory/Chest: Decreased Breath Sounds, Other (agonal breathing with poor air entry) Cardiovascular: Normal Peripheral Pulses, No JVD, No Rub GI/Abdominal: Soft, Non-Tender, No Organomegaly, No Mass (Male) Exam: Normal Inspection Rectal (Males) Exam: Deferred Extremities: Normal Inspection Neurological: Unresponsive Course - Orders/Labs/Meds Orders: Active Orders 24 hr Category Date Time Status EKG Documentation Completion [RC] STAT Care 02/07/20 11:41 Active CORONAVIRUS COVID-19 PCR PHL Stat Lab 02/07/20 11:43 Ordered CULTURE BLOOD [BC] Stat Lab 02/07/20 11:43 Ordered CULTURE BLOOD [BC] Stat Lab 02/07/20 11:43 Ordered INFLUENZA A+B AG SCREEN [RM] Stat Lab 02/07/20 11:42 Ordered Sodium Chloride 0.9% [Saline Flush] Med 02/07/20 11:41 Active 10 ml FLUSH ASDIRECTED PRN Blood Culture x2 Reflex Set [OM.PC] Stat Oth 02/07/20 11:42 Ordered Peripheral IV Insertion Adult [OM.PC] Routine Oth 02/07/20 11:42 Ordered Medication Orders Sodium Chloride (Saline Flush) 10 ml FLUSH ASDIRECTED PRN PRN Reason: Keep Vein Open Labs: Laboratory Tests 02/07/20 02/07/20 02/07/20 Range/Units 11:00 11:00 11:00 WBC 8.9 (4.0-10.0) x10^3/uL RBC 4.06 L (4.5-6.0) x10^6/uL Hgb 13.5 L (14.0-18.0) g/dL Hct 45.5 (40.0-52.0) % MCV 112.1 H (78.0-93.0) fL MCH 33.3 H (26.0-32.0) pg MCHC 29.7 L (32.0-36.0) g/dL RDW Coeff of Honey 12.3 (10.0-15.0) % Plt Count 123 L (130-400) x10^3/uL Add Manual Diff Yes Neutrophils % (Manual) 55 (50-80) % Band Neutrophils % 3 (0-6) % Lymphocytes % (Manual) 27 (25-50) % Monocytes % (Manual) 11 (2-11) % Eosinophils % (Manual) 2 (0-4) % Metamyelocytes % 2 H (0) % Platelet Estimate Decreased L Macrocytosis 2+ moderate H Stomatocytes 2+ moderate H PT 10.6 (10.0-12.8) SEC INR 0.9 L (2.0-3.5) APTT 22.4 L (24.0-36.0) SEC D-Dimer, Quantitative 0.55 (<=0.58) mg/LFEU POC ABG pH (7.35-7.45) POC ABG pCO2 (35-45) mmHG POC ABG pO2 (80-105) mmHG POC FiO2 Sodium Cancelled Potassium Cancelled Chloride Cancelled Carbon Dioxide Cancelled Anion Gap Cancelled BUN Cancelled Creatinine Cancelled Est Cr Clr Drug Dosing Cancelled Estimated GFR (MDRD) Cancelled Glucose Cancelled Lactic Acid (0.4-2.0) mmol/L Calcium Cancelled Corrected Calcium (8.5-10.1) mg/dL Phosphorus (2.6-4.7) mg/dL Magnesium (1.8-2.4) mg/dL Total Bilirubin (0.2-1.0) mg/dL AST (15-37) U/L ALT (16-63) U/L Alkaline Phosphatase (46-116) U/L POC Troponin I (0.00-0.08) ng/mL Troponin I C-Reactive Protein (<=0.9) mg/dL NT-Pro-B Natriuret Pep (<=450) pg/mL Total Protein (6.4-8.2) g/dL Albumin (3.4-5.0) g/dL Globulin Albumin/Globulin Ratio TSH, Ultra Sensitive (0.358-3.74) uIU/mL POC Result Comm Urine Color (YELLOW) Urine Appearance (CLEAR) Urine pH (5.0-8.0) Ur Specific [place] Urine Protein (NEGATIVE) mg/dL Urine Glucose (UA) (NEGATIVE) mg/dL Urine Ketones (NEGATIVE) mg/dL Urine Occult Blood (NEGATIVE) Urine Nitrite (NEGATIVE) Urine Bilirubin (NEGATIVE) Urine Urobilinogen (0.2) EU/dL Ur Leukocyte Esterase (NEGATIVE) Urine RBC (NOT SEEN) /HPF Urine WBC (NOT SEEN) /HPF Ur Squamous Epith Cells (NEGATIVE) /HPF Urine Bacteria (NEGATIVE) /HPF Urine Mucus (NEGATIVE) /LPF Urine Opiates Screen (NEAGTIVE) Ur Buprenorphine Scrn (NEGATIVE) Ur Oxycodone Screen (NEGATIVE) Ur EDDP (Meth Metab) (NEGATIVE) Urine Methadone Screen (NEGATIVE) Ur Barbiturates Screen (NEGATIVE) Ur Tricyclics Screen (NEGATIVE) Ur Phencyclidine Scrn (NEGATIVE) Ur Amphetamine Screen (NEGATIVE) U Methamphetamines Scrn (NEGATIVE) Urine MDMA Screen (NEGATIVE) U Benzodiazepines Scrn (NEGATIVE) U Cocaine Metab Screen (NEGATIVE) U Marijuana (THC) Screen (NEGATIVE) Ethyl Alcohol (0-3) mg/dL 02/07/20 02/07/20 02/07/20 Range/Units 11:00 11:00 11:06 WBC (4.0-10.0) x10^3/uL RBC (4.5-6.0) x10^6/uL Hgb (14.0-18.0) g/dL Hct (40.0-52.0) % MCV (78.0-93.0) fL MCH (26.0-32.0) pg MCHC (32.0-36.0) g/dL RDW Coeff of Honey (10.0-15.0) % Plt Count (130-400) x10^3/uL Add Manual Diff Neutrophils % (Manual) (50-80) % Band Neutrophils % (0-6) % Lymphocytes % (Manual) (25-50) % Monocytes % (Manual) (2-11) % Eosinophils % (Manual) (0-4) % Metamyelocytes % (0) % Platelet Estimate Macrocytosis Stomatocytes PT (10.0-12.8) SEC INR (2.0-3.5) APTT (24.0-36.0) SEC D-Dimer, Quantitative (<=0.58) mg/LFEU POC ABG pH (7.35-7.45) POC ABG pCO2 (35-45) mmHG POC ABG pO2 (80-105) mmHG POC FiO2 Sodium 144 Potassium 4.6 Chloride 99 Carbon Dioxide 55 H D Anion Gap -5.4 L BUN 15 Creatinine 0.9 Est Cr Clr Drug Dosing TNP Estimated GFR (MDRD) > 60 Glucose 173 H Lactic Acid 2.8 H* (0.4-2.0) mmol/L Calcium 9.0 Corrected Calcium 9.64 (8.5-10.1) mg/dL Phosphorus 2.6 (2.6-4.7) mg/dL Magnesium 2.1 (1.8-2.4) mg/dL Total Bilirubin 0.8 (0.2-1.0) mg/dL AST 23 (15-37) U/L ALT 23 (16-63) U/L Alkaline Phosphatase 82 (46-116) U/L POC Troponin I 0.01 (0.00-0.08) ng/mL Troponin I Cancelled C-Reactive Protein 3.8 H (<=0.9) mg/dL NT-Pro-B Natriuret Pep 338 (<=450) pg/mL Total Protein 6.3 L (6.4-8.2) g/dL Albumin 3.2 L (3.4-5.0) g/dL Globulin 3.1 Albumin/Globulin Ratio 1.03 TSH, Ultra Sensitive 3.342 (0.358-3.74) uIU/mL POC Result Comm Urine Color (YELLOW) Urine Appearance (CLEAR) Urine pH (5.0-8.0) Ur Specific [place] Urine Protein (NEGATIVE) mg/dL Urine Glucose (UA) (NEGATIVE) mg/dL Urine Ketones (NEGATIVE) mg/dL Urine Occult Blood (NEGATIVE) Urine Nitrite (NEGATIVE) Urine Bilirubin (NEGATIVE) Urine Urobilinogen (0.2) EU/dL Ur Leukocyte Esterase (NEGATIVE) Urine RBC (NOT SEEN) /HPF Urine WBC (NOT SEEN) /HPF Ur Squamous Epith Cells (NEGATIVE) /HPF Urine Bacteria (NEGATIVE) /HPF Urine Mucus (NEGATIVE) /LPF Urine Opiates Screen (NEAGTIVE) Ur Buprenorphine Scrn (NEGATIVE) Ur Oxycodone Screen (NEGATIVE) Ur EDDP (Meth Metab) (NEGATIVE) Urine Methadone Screen (NEGATIVE) Ur Barbiturates Screen (NEGATIVE) Ur Tricyclics Screen (NEGATIVE) Ur Phencyclidine Scrn (NEGATIVE) Ur Amphetamine Screen (NEGATIVE) U Methamphetamines Scrn (NEGATIVE) Urine MDMA Screen (NEGATIVE) U Benzodiazepines Scrn (NEGATIVE) U Cocaine Metab Screen (NEGATIVE) U Marijuana (THC) Screen (NEGATIVE) Ethyl Alcohol < 3 (0-3) mg/dL 02/07/20 02/07/2020 Range/Units 11:23 11:30 11:30 WBC (4.0-10.0) x10^3/uL RBC (4.5-6.0) x10^6/uL Hgb (14.0-18.0) g/dL Hct (40.0-52.0) % MCV (78.0-93.0) fL MCH (26.0-32.0) pg MCHC (32.0-36.0) g/dL RDW Coeff of Honey (10.0-15.0) % Plt Count (130-400) x10^3/uL Add Manual Diff Neutrophils % (Manual) (50-80) % Band Neutrophils % (0-6) % Lymphocytes % (Manual) (25-50) % Monocytes % (Manual) (2-11) % Eosinophils % (Manual) (0-4) % Metamyelocytes % (0) % Platelet Estimate Macrocytosis Stomatocytes PT (10.0-12.8) SEC INR (2.0-3.5) APTT (24.0-36.0) SEC D-Dimer, Quantitative (<=0.58) mg/LFEU POC ABG pH 7.134 L* (7.35-7.45) POC ABG pCO2 > 130 H* (35-45) mmHG POC ABG pO2 67 L (80-105) mmHG POC FiO2 0.90 Sodium Potassium Chloride Carbon Dioxide Anion Gap BUN Creatinine Est Cr Clr Drug Dosing Estimated GFR (MDRD) Glucose Lactic Acid (0.4-2.0) mmol/L Calcium Corrected Calcium (8.5-10.1) mg/dL Phosphorus (2.6-4.7) mg/dL Magnesium (1.8-2.4) mg/dL Total Bilirubin (0.2-1.0) mg/dL AST (15-37) U/L ALT (16-63) U/L Alkaline Phosphatase (46-116) U/L POC Troponin I (0.00-0.08) ng/mL Troponin I C-Reactive Protein (<=0.9) mg/dL NT-Pro-B Natriuret Pep (<=450) pg/mL Total Protein (6.4-8.2) g/dL Albumin (3.4-5.0) g/dL Globulin Albumin/Globulin Ratio TSH, Ultra Sensitive (0.358-3.74) uIU/mL POC Result Comm Called results Urine Color Dark yellow H (YELLOW) Urine Appearance Slightly cloudy H (CLEAR) Urine pH 6.5 (5.0-8.0) Ur Specific [place] 1.025 Urine Protein 100 H (NEGATIVE) mg/dL Urine Glucose (UA) Negative (NEGATIVE) mg/dL Urine Ketones Negative (NEGATIVE) mg/dL Urine Occult Blood Negative (NEGATIVE) Urine Nitrite Negative (NEGATIVE) Urine Bilirubin Negative (NEGATIVE) Urine Urobilinogen 0.2 (0.2) EU/dL Ur Leukocyte Esterase Negative (NEGATIVE) Urine RBC 0-5 (NOT SEEN) /HPF Urine WBC 0-5 (NOT SEEN) /HPF Ur Squamous Epith Cells Rare (NEGATIVE) /HPF Urine Bacteria Rare (NEGATIVE) /HPF Urine Mucus Few H (NEGATIVE) /LPF Urine Opiates Screen Negative (NEAGTIVE) Ur Buprenorphine Scrn Negative (NEGATIVE) Ur Oxycodone Screen Negative (NEGATIVE) Ur EDDP (Meth Metab) Negative (NEGATIVE) Urine Methadone Screen Negative (NEGATIVE) Ur Barbiturates Screen Negative (NEGATIVE) Ur Tricyclics Screen Negative (NEGATIVE) Ur Phencyclidine Scrn Negative (NEGATIVE) Ur Amphetamine Screen Negative (NEGATIVE) U Methamphetamines Scrn Negative (NEGATIVE) Urine MDMA Screen Negative (NEGATIVE) U Benzodiazepines Scrn Negative (NEGATIVE) U Cocaine Metab Screen Negative (NEGATIVE) U Marijuana (THC) Screen Negative (NEGATIVE) Ethyl Alcohol (0-3) mg/dL Meds: Medications Generic Name Dose Route Start Last Admin Trade Name Freq PRN Reason Stop Dose Admin Sodium Chloride 10 ml 02/07/20 11:41 Saline Flush FLUSH ASDIRECTED PRN Keep Vein Open Discontinued Medications Generic Name Dose Route Start Last Admin Trade Name Freq PRN Reason Stop Dose Admin Etomidate Confirm 02/07/20 12:01 Amidate Administered 02/07/20 12:02 Dose 20 mg .ROUTE .STK-MED ONE Fentanyl Confirm 02/07/20 12:00 Sublimaze Administered 02/07/20 12:01 Dose 100 mcg .ROUTE .STK-MED ONE Piperacillin Sod/Tazobactam 100 mls @ 200 mls/hr 02/07/20 11:46 02/07/20 11: 53 Sod 4.5 gm/ Sodium Chloride IV 02/07/20 12:15 200 mls/hr STAT ONE Administration Propofol Confirm 02/07/20 12:02 Diprivan 20 Ml Administered 02/07/20 12:03 Dose 200 mg .ROUTE .STK-MED ONE Rocuronium [place] Confirm 02/07/20 11:46 Zemuron Administered 02/07/20 11:47 Dose 50 mg .ROUTE .STK-MED ONE Rocuronium [place] Confirm 02/07/20 12:02 Zemuron Administered 02/07/20 12:03 Dose 50 mg .ROUTE .STK-MED ONE Succinylcholine Chloride Confirm 02/07/20 12:02 Quelicin Administered 02/07/20 12:03 Dose 200 mg .ROUTE .STK-MED ONE - Radiology Interpretation Free Text/Narrative:: Large opacification of R lung base. ET tube in good position with tip above la. - Re-Assessments/Exams Free Text/Narrative Re-Assessment/Exam: Pt. was experiencing agonal respirations and had vomited on arrival to ER. Initially pulse was not palpable. Pt. had to be wrestled from car and onto cot. Chest compressions were performed briefly. Attempted ET intubation x 2. Large amount of secretions encountered. Pt. was subsequently given fentanyl 50mcg and Etomidate 20mg and a Scott airway was placed. Pt. was bagged and 96% O2 sat was achieved with this. Pt. was subsequently intubated with an 8-0 ETT. He recieved 200mg of succinylcholine and 20mg of etomidate for RSI. Tube at 22 at the teeth. Good placement was noted to chest x-ray. ETCO2 48. Bilateral breath sounds noted. Post intubation he was given 50mg rocuronium IV. Pt. remained hemodynamically stable during/post intubation. Current vent settings: tidal vol 500, FI02 85, rate 22 Pt. was given zosyn 4.5gm IV. Departure - Departure Time of Disposition: 12:34 Disposition: DC/Tfer to [facility] 02 Clinical Impression: Respiratory failure, CAP (community acquired pneumonia) Respiratory failure with hypoxia and hypercapnia Qualifiers: Chronicity: acute on chronic Qualified Code(s): J96.21 - Acute and chronic respiratory failure with hypoxia - Discharge Information Referrals: Jen Armenta MD [Primary Care Provider] - Forms: ED Department Discharge, Interfacility Transfer EMTALA Sepsis Event Note - Focused Exam Date Exam was Performed: 02/07/20 Time Exam was Performed: 12:20 - Problem List Review Problem List Initiated/Reviewed/Updated: Yes - My Orders Last 24 Hours: My Active Orders 02/07/20 11:41 EKG Documentation Completion [RC] STAT Sodium Chloride 0.9% [Saline Flush] 10 ml FLUSH ASDIRECTED PRN 02/07/20 11:42 INFLUENZA A+B AG SCREEN [RM] Stat Blood Culture x2 Reflex Set [OM.PC] Stat Peripheral IV Insertion Adult [OM.PC] Routine 02/07/20 11:43 CORONAVIRUS COVID-19 PCR PHL Stat CULTURE BLOOD [BC] Stat CULTURE BLOOD [BC] Stat - Assessment/Plan Last 24 Hours: My Active Orders 02/07/20 11:41 EKG Documentation Completion [RC] STAT Sodium Chloride 0.9% [Saline Flush] 10 ml FLUSH ASDIRECTED PRN 02/07/20 11:42 INFLUENZA A+B AG SCREEN [RM] Stat Blood Culture x2 Reflex Set [OM.PC] Stat Peripheral IV Insertion Adult [OM.PC] Routine 02/07/20 11:43 CORONAVIRUS COVID-19 PCR PHL Stat CULTURE BLOOD [BC] Stat CULTURE BLOOD [BC] Stat Plan: Pt. will be transferred to [facility]. I spoke with Dr. Zaman, screw machine set up operator tool at [facility]. Pt. will be transported via [facility] ground ambulance. At this time, pt. is a code one. I did discuss findings with his brother who agrees with plan of care. Pt. has not required any pressors at this point. He was not tested for covid 19 , as the results will have to be sent to [place]. Pt. was be screened on arrival to [facility].
--- NOTE | 2020-02-07 12:03 | CR ---
[id number] RAD/RAD Chest PA or AP 1V EXAM: FRONTAL CHEST INDICATION: RESPIRATORY DISTRESS, CODE BLUE. COMPARISON: September 07, 2019. DISCUSSION: The endotracheal tube is about 60 mm above the la. Moderate apparent elevation of the right hemidiaphragm has increased. Volume loss in the right lung base limits assessment for infiltrates and other underlying pathology. Stable cardiomegaly without current evidence of pulmonary edema. Tortuous thoracic aorta. The left costophrenic angle is not included in the [id number] of this study. IMPRESSION: 1. The endotracheal tube tip is about 60mm above the la. 2. Increased elevation of the right hemidiaphragm. Right base opacities are nonspecific and could represent pleural fluid, infiltrates and/or atelectasis. Eric Lane MD 02/07/20 1206 Thank you for allowing us to participate in the care of your patient.
[2020-02-07 12:06] LABS: PTT,PARTIAL THROMBOPLSTIN TIME 22.4 SEC (24.0-36.0)
[2020-02-07 12:14] LABS: BARBITURATE SCREEN,URINE NEGATIVE (NEGATIVE); BENZODIAZEPINES SCREEN,URINE NEGATIVE (NEGATIVE); EDDP,URINE SCREEN NEGATIVE (NEGATIVE); METHAMPHETAMINE SCREEN, URINE NEGATIVE (NEGATIVE); TCA SCREEN,URINE NEGATIVE (NEGATIVE); THC SCREEN,URINE 50 NG/ML NEGATIVE (NEGATIVE)
--- NOTE | 2020-02-07 12:29 | PCM.PRNOTE ---
- Free Text/Narrative Note: Intubation note: Was called to the emergency room for a patient who minimally responsive and with low SPO2. The patient is found to have no spontaneous respirations and was being Ambued. SPO2 was approximately 96%. Patient was minimally responsive stimuli. I was requested to intubate this patient for transport to [place]. Ambu and intubation equipment was assembled. Hobbs scope was set up and checked. Patient was Ambued with 100% O2. The patient was prepped with ChloraPrep orally prior to the first attempt by the ER staff. suctioned. The patient was given succinylcholine 200 mg IV as well as 50 mcg of fentanyl IV. This was allowed to circulate and the patient was Ambued throughout. Visualization using a glide scope was obtained. The pharynx had a moderate amount of heme positive versus bile accumulated. An 8.0 mm ID endotracheal tube was advanced using a rigid stylet. Oropharynx had secretions as noted above, this had been performed.ET tube was passed through the glottic opening, and the balloon was noted to go through the cords. The tube was held in place and the stylet was removed. The tube was advanced to 24 cm at the teeth. Balloon was inflated with 10 mL of air. End tidal CO2 was positive at 99 mmHg and hyperventilation was begun. Breath sounds or positive over of all lung bartholomew and negative over the epigastric area. Tube was secured with a bite block securing device. Ambu with 100% O2 was continued until the patient was placed on the ventilator. Rocuronium 100 mg IV was given. Ventilator was set at tidal volume 500 mL, 100 % SaO2, rate of 16, PEEP of 10. Chest x-ray was obtained. Report given to nursing staff.
[2020-02-07] MEDS ORDERED: Midazolam 1 MG/ML 2 ML SDV ONE (12:56)
== END 2020-02-07 13:05 | disposition short-term general hospital (02) ==
LOC: VM.ED 10:56
DX: J96.21 Acute and chronic respiratory failure with hypoxia (principal); J18.9 Pneumonia, unspecified organism; I11.0 Hypertensive heart disease with heart failure; I50.9 Heart failure, unspecified; E78.00 Pure hypercholesterolemia, unspecified; K21.9 Gastro-esophageal reflux disease without esophagitis; Z79.899 Other long term (current) drug therapy
CPT/HCPCS: 36415; 36600; 71045; 80053; 80305; 80307; 81001; 82803; 83605; 83735; 83880; 84100; 84443; 84484; 85025; 85379; 85610; 85730; 86140; 87040; 93005; 94002; 96365; 99285; J0330; J2250; J2543; J3010; J3490; J7030; J7050